=== PATIENT | female | born 1940 | race Caucasian/White ===

== ENCOUNTER → 2017-03-05 | Outpatient (CLI) | payer BC ==
[~2017-03-05] MED LIST: BIOF500T PO; CALC-335 PO; CHOL1CAP57 PO; CYAN10004 PO; DOCU-94 PO; MISCCAP80 PO; MULT-188 PO
--- NOTE | 2017-03-05 16:04 | MAMMOGRAPHY REPORT ---
BILATERAL DIGITAL SCREENING MAMMOGRAM WITH CAD: 03/05/2017 CLINICAL HISTORY: Routine screening. Patient has no complaints. TECHNIQUE: Current study was also evaluated with a Computer Aided Detection (CAD) system. COMPARISON: Comparison is made to exams dated: 03/08/2015 mammogram, 01/25/2015 mammogram, 12/17/2013 mammogram, 12/17/2013 mammogram, 12/03/2012 mammogram, and 11/06/2011 mammogram - [facility]. BREAST COMPOSITION: There are scattered areas of fibroglandular density in both breasts. FINDINGS: The parenchymal pattern is unchanged. No developing mass, architectural distortion or clus ter of suspicious suspicious microcalcifications is seen in either breast. IMPRESSION: ACR BI-RADS CATEGORY 2: BENIGN There is no mammographic evidence of malignancy. A 1 year screening mammogram is recommended. The p atient will receive written notification of the results. Approximately 10% of breast cancers are not detected with mammography. A negative mammographic repor t should not delay biopsy if a clinically suggestive mass is present. Margarita Sanchez M.D. ay/:03/05/2017 15:22:12 Sales Administrator: Danette Reynolds RT(R)(M), [facility] letter sent: Normal 1/2 BI-RADS Code: ACR BI-RADS Category 2: Benign
== END | disposition home or self-care (01) ==
LOC: C.MAMM 14:24
PROVIDERS: ATTEND Family Medicine
DX: Z12.31 Encounter for screening mammogram for malignant neoplasm of breast (principal)

== ENCOUNTER → 2018-03-10 | Outpatient (CLI) | payer BC ==
--- NOTE | 2018-03-10 15:25 | MAMMOGRAPHY REPORT ---
BILATERAL DIGITAL SCREENING MAMMOGRAM TOMOSYNTHESIS WITH CAD: 03/10/2018 CLINICAL HISTORY: Routine screening. Patient has no complaints. TECHNIQUE: Breast tomosynthesis in addition to standard 2D mammography was performed. Current study was also evaluated with a Computer Aided Detection (CAD) system. COMPARISON: Comparison is made to exams dated: 03/05/2017 mammogram, 03/08/2015 ultrasound, 01/25/2015 m ammogram, 12/03/2012 mammogram, 11/06/2011 mammogram, and 12/17/2013 mammogram - [facility]. BREAST COMPOSITION: There are scattered areas of fibroglandular density in both breasts. FINDINGS: The parenchymal pattern is unchanged. No developing mass, architectural distortion or clus ter of suspicious microcalcifications is seen in either breast. IMPRESSION: ACR BI-RADS CATEGORY 2: BENIGN There is no mammographic evidence of malignancy. A 1 year screening mammogram is recommended. The pa tient will receive written notification of the results. Approximately 10% of breast cancers are not detected with mammography. A negative mammographic report should not delay biopsy if a clinically suggestive mass is present. Margarita Sanchez M.D. ay/:03/10/2018 14:41:56 Report Manager: Guillermina CONNELL(Richi)(Susana), [facility] letter sent: Normal 1/2 BI-RADS Code: ACR BI-RADS Category 2: Benign
== END | disposition home or self-care (01) ==
LOC: C.MAMM 13:50
PROVIDERS: ATTEND Family Medicine
DX: Z12.31 Encounter for screening mammogram for malignant neoplasm of breast (principal)

== ENCOUNTER 2022-05-12 16:49 | Inpatient (IN) ==
--- NOTE | 2022-05-12 17:43 | Emergency Department Note ---
History of Present Illness General Chief complaint: Abnormal Labs/Diagnostic Testing Stated complaint: LOW SODIUM, ABNORMAL LABS, FEVER Time Seen by Provider: 05/12/22 17:14 Source: patient Mode of arrival: ambulatory Limitations: other History of Present Illness Provider complaint: Fatigue, low sodium, fever Onset (ago): day(s) 4 Maximum Pain Intensity: 1 This is an 82-year-old female presents emerged department complaining of 4 to 5 days of increased fatigue and low energy, decreased appetite, as well as intermittent fevers. She states she did go see her regular doctor who recommended outpatient blood work due to a history of low sodium. Patient does not know why she has had low sodium previously. Patient denies any history of kidney problems. Patient states she has also had accompanying postnasal drip, denies other nasal congestion, rhinorrhea, sore throat, or facial sinus pressure. Patient states they started on cephalexin which she has been taking over the last 2 to 3 days. Patient states they did call her to tell her that her sodium was low and it was rechecked. Family at bedside states fevers at home have been up over 101. No other change in medications recently. Patient states she did have a negative COVID test ordered by the doctor the other day as well as a negative home COVID test again today. No known sick contacts. Patient states she also began starting to have loose stools today, no black or bloody stools. She denies abdominal pain, change in urine, headaches, dizziness, cough, trouble breathing, or chest pain. Pt seen during a time of high acuity and national emergency pandemic while wearing PPE. Home Medications Medication Instructions Recorded Confirmed Type Raymore's wort 300 mg capsule 900 mg PO DAILY 08/11/19 05/12/22 History ascorbic acid (vitamin C) 1,000 mg 1 g PO QAM 08/11/19 05/12/22 History tablet (Vitamin C) cholecalciferol (vitamin D3) 50 2,000 unit PO QAM 08/11/19 05/12/22 History mcg (2,000 unit) capsule (Vitamin D3) cyanocobalamin (vitamin B-12) 5,000 mcg sublingual QAM 08/11/19 05/12/22 History 5,000 mcg sublingual tablet (Vitamin B-12) fexofenadine 180 mg tablet 180 mg PO QAM 08/11/19 05/12/22 History (Ernestine Allergy) lactobacillus combination no.4 3 3,000 mmu cells PO QAM 08/11/19 05/12/22 History billion cell capsule (Probiotic) carboxymethylcellulose sodium 1 % 2 drp ophthalmic (eye) BID Dry 05/09/22 05/12/22 History eye drops (Artificial Tears Eye(S) (carboxymethylcellulose)) fluticasone propionate 50 1 spray intranasal BID 05/09/22 05/12/22 History mcg/actuation nasal spray,suspension cephalexin 500 mg capsule 500 mg PO TID #21 caps 05/11/22 05/12/22 Rx Allergies Allergy/AdvReac Type Severity Reaction Status Date / Time Sulfa (Sulfonamide Allergy Intermediate RASH Verified 05/12/22 18:27 Antibiotics) metronidazole Allergy Unknown PER PT Verified 05/12/22 18:27 "WORST MED I EVER TOOK". nitrofurantoin Allergy Unknown CAN'T Verified 05/12/22 18:27 REMEMBER Penicillins Allergy Unknown HAPPENED Verified 05/12/22 18:27 MANY YEARS AGO. gluten AdvReac Intermediate Gastrointestinal Verified 05/12/22 18:27 Upset soy AdvReac Intermediate Gastrointestinal Verified 05/12/22 18:27 Upset Past Med/Surg History Medical History Diverticular disease Osteoarthritis Surgical History History of appendectomy History of bilateral cataract extraction History of bowel resection History of breast biopsy History of colonoscopy History of detached retina repair History of esophagogastroduodenoscopy (EGD) History of tonsillectomy Status post trigger finger release Family History Father Esophageal cancer Hearing loss Cancer Grandfather (Maternal) Myocardial infarction Other No family history of adverse response to anesthesia No family history of bleeding disorder Denies family history of Ovarian cancer Prostate cancer Breast cancer Colorectal cancer Social History Smoking Status: Never smoker Second Hand Exposure: Yes; Hx Alcohol Use: Yes Alcohol type: wine Alcohol Intake Frequency: Monthly or Less Hx Substance Use: No Preferred Language: Hungarian Communication Ability: Effective Visual Impairment: No Limitations Hearing Ability: Hard of Hearing Doorkeeper Required: No Beliefs That Will Affect Care: None marital status: / Current Living Situation: Family Current Living Situation Comment: Granddaughter lives with patient current occupational status: retired How many Children do You have: 4 Feels Safe at Home: Yes Childhood Exposure to Second-Hand Smoke: Yes Diet Comment: No soy or dairy caffeine: Yes during the past year weight has: remained stable Dental Care, Regularly: No Physical Activity Frequency: Daily Seatbelt Use: always Sunscreen Use: No Assistive Devices: None Review of Systems A total of 10 systems reviewed and were otherwise negative All systems reviewed & are unremarkable except as noted in HPI & below Physical Exam Vital Signs Vital Signs - 24 hr 05/12/22 16:53 05/12/22 17:10 Temperature 37 C Temperature Source Oral Pulse Rate 83 Pulse Rate [Apical] 79 Respiratory Rate 18 20 Respiratory Effort / Characteristics Non-Labored Spontaneous Respiratory Depth Normal Respiratory Pattern Regular Blood Pressure 125/70 Blood Pressure [Left Arm] 130/61 Blood Pressure Mean 88 Blood Pressure Mean [Left Arm] 84 Blood Pressure Position [Left Arm] Sitting Pulse Oximetry 95 96 Oxygen Delivery Method Room Air Room Air Sepsis Recent Fever Within 48 Hours Yes Sepsis New/Unexplained Change in Mental Status N/A Sepsis Action Taken by Nursing No Action Required GENERAL: alert, well appearing, well nourished, no distress, non-toxic EYE EXAM: normal conjunctiva, PERRL and EOM's grossly intact OROPHARYNX: no exudate, no erythema, lips, buccal mucosa, and tongue normal and mucous membranes are moist NECK: supple, no nuchal rigidity, no adenopathy, non-tender LUNGS: Clear to auscultation. Normal chest wall mechanics, no w/r/r HEART: no murmurs, S1 normal and S2 normal ABDOMEN: abdomen soft, non-tender, normo-active bowel sounds, no masses, no rebound or guarding. BACK: Back is symmetrical on inspection and there is no deformity, no midline tenderness, no CVA tenderness. SKIN: no rashes and no bruising UPPER EXTREMITIES: upper extremities are grossly normal. FROM, nml pulses b/l. LOWER EXTREMITIES: No pitting edema. FROM, nml pulses b/l. NEURO EXAM: Oriented but difficulty with recent events and chronology of events, cranial nerves II-XII grossly intact, normal speech, no gross weakness of arms, no gross weakness of legs. Gross sensation intact. Course Administered Medications Fexofenadine HCl (Fexofenadine Hcl 180 Mg Tab) 180 mg PO QAM MO Stop: 06/12/22 08:59 Last Admin: 05/13/22 07:46 Dose: 180 mg Documented By: BARRINGTON Fluticasone Propionate (Fluticasone Propionate Na Spr 16 Gm Btl) 1 sprays NA BID MO Stop: 06/12/22 08:59 Last Admin: 05/13/22 20:58 Dose: 1 sprays Documented By: Admin: 05/13/22 07:47 Dose: 1 sprays Documented By: BARRINGTON Loperamide HCl (Loperamide Hcl 2 Mg Cap) 2 mg PO Q6H PRN PRN Reason: Diarrhea Stop: 06/12/22 20:35 Last Admin: 05/13/22 20:58 Dose: 2 mg Documented By: Ondansetron HCl (Ondansetron Inj 2 Mg/Ml 2 Ml Vial) 4 mg IV Q6H PRN PRN Reason: Nausea Stop: 06/11/22 23:44 Last Admin: 05/13/22 00:26 Dose: 4 mg Documented By: SB Discontinued Medications Sodium Chloride (Nss 1000ml) 1,000 mls @ 100 mls/hr IV .Q10H MO Stop: 06/11/22 21:29 Last Infusion: 05/13/22 07:40 Dose: 0 mls/hr Documented By: Admin: 05/12/22 21:34 Dose: 100 mls/hr Documented By: DELMY Sodium Chloride (Sodium Chloride 1 Gm Tablet) 1 gm PO NOW STA Stop: 05/13/22 09:53 Last Admin: 05/13/22 10:53 Dose: 1 gm Documented By: BARRINGTON Medical Decision Making Differential Diagnosis Differential Diagnosis includes but is not limited to dehydration, stroke, anemia, hypoglycemia, hyponatremia, hypernatremia, urinary tract infection, pneumonia, bronchitis, sepsis, gastroenteritis, additional abdominal pathology, metabolic abnormalities and infections. Medical Records Attestation: I reviewed the patient's medical records. Home Medications Current Medication List: was personally reviewed by me Laboratory Data Attestation: I reviewed the patient's lab results. Result diagrams: 05/13/22 05:55 05/13/22 16:08 Lab Results 05/12/22 05/12/2222 Range/Units 17:12 17:12 17:12 WBC 5.84 (4.8-10.8) K/ul RBC 3.57 L (3.93-5.22) M/uL Hgb 11.2 L (12.0-16.0) g/dl Hct 32.2 L (34.1-44.9) % MCV 90.2 (80.0-100.0) fL MCH 31.4 (25.0-34.0) pg MCHC 34.8 (32.0-36.0) g/dL RDW Std Deviation 44.6 (36.4-46.3) fL RDW Coeff of Billy 13.4 (11.5-14.5) % Plt Count 197 (130-400) K/uL MPV 10.1 (9.4-12.3) fL Immature Gran % (Auto) 0.2 % Neut % (Auto) 81.6 % Lymph % (Auto) 8.0 % [place] % (Auto) 9.8 % Eos % (Auto) 0.2 % Baso % (Auto) 0.2 % Neut # (Auto) 4.77 (1.4-6.5) K/uL Lymph # (Auto) 0.47 L (1.2-3.4) K/uL [place] # (Auto) 0.57 (0.24-0.82) K/uL Eos # (Auto) 0.01 (0-0.50) K/uL Baso # (Auto) 0.01 (0-0.2) K/uL Immature Gran # (Auto) 0.01 (0.00-0.02) K/uL PT 10.3 (9.0-12.0) Seconds INR 1.0 (0.9-1.1) Sodium (136-145) mmol/L Potassium (3.5-5.1) mmol/L Chloride (98-107) mmol/L Carbon Dioxide (21-32) mmol/L Anion Gap (3-11) BUN (6-23) mg/dl Creatinine (0.6-1.2) mg/dl Est Cr Clr Drug Dosing Est GFR ( Amer) ml/min Est GFR (Non-Af Amer) ml/min BUN/Creatinine Ratio (10-20) Glucose (70-99(Fasting)) mg/dl Osmolality (280-300) mOsm/kg Lactate (0.4-2.0) mmol/L Calcium (8.5-10.1) mg/dl Magnesium (1.7-2.4) mg/dl Total Bilirubin (0.2-1.0) mg/dl AST (13-39) U/L ALT (7-52) U/L Alkaline Phosphatase (34-104) U/L Troponin I High Sens (0-14) pg/ml Total Protein (6.0-8.3) gm/dl Albumin (3.4-5.0) gm/dl Globulin (2.5-4.0) gm/dl Albumin/Globulin Ratio (0.9-2) Procalcitonin 0.08 (0-0.5) ng/ml Urine Color Urine Appearance (Clear) Urine pH (4.5-7.5) Ur Specific [place] (1.000-1.030) Urine Protein (Negative) Urine Glucose (UA) (Negative) Urine Ketones (Negative) Urine Blood (Negative) Urine Nitrite (Negative) Urine Bilirubin (Negative) Urine Urobilinogen (Negative) Ur Leukocyte Esterase (Negative) Urine WBC (Auto) (0-5) /hpf Urine RBC (Auto) (0-4) /hpf U Hyaline Cast (Auto) (0-5) /lpf U Epithel Cells (Auto) (0-5) /lpf Urine Bacteria (Auto) (Negative) SARS-CoV-2, RNA, NAAT (NEGATIVE) 05/12/22 05/12/22 05/12/22 Range/Units 17:12 17:12 17:52 WBC (4.8-10.8) K/ul RBC (3.93-5.22) M/uL Hgb (12.0-16.0) g/dl Hct (34.1-44.9) % MCV (80.0-100.0) fL MCH (25.0-34.0) pg MCHC (32.0-36.0) g/dL RDW Std Deviation (36.4-46.3) fL RDW Coeff of Billy (11.5-14.5) % Plt Count (130-400) K/uL MPV (9.4-12.3) fL Immature Gran % (Auto) % Neut % (Auto) % Lymph % (Auto) % [place] % (Auto) % Eos % (Auto) % Baso % (Auto) % Neut # (Auto) (1.4-6.5) K/uL Lymph # (Auto) (1.2-3.4) K/uL [place] # (Auto) (0.24-0.82) K/uL Eos # (Auto) (0-0.50) K/uL Baso # (Auto) (0-0.2) K/uL Immature Gran # (Auto) (0.00-0.02) K/uL PT (9.0-12.0) Seconds INR (0.9-1.1) Sodium 127 L (136-145) mmol/L Potassium 4.4 (3.5-5.1) mmol/L Chloride 95 L (98-107) mmol/L Carbon Dioxide 25 (21-32) mmol/L Anion Gap 7 (3-11) BUN 11 (6-23) mg/dl Creatinine 0.73 (0.6-1.2) mg/dl Est Cr Clr Drug Dosing Not Reportable Est GFR ( Amer) 88.3 ml/min Est GFR (Non-Af Amer) 76.2 ml/min BUN/Creatinine Ratio 15.1 (10-20) Glucose 118 H (70-99(Fasting)) mg/dl Osmolality 268 L (280-300) mOsm/kg Lactate 1.5 (0.4-2.0) mmol/L Calcium 8.5 (8.5-10.1) mg/dl Magnesium 1.8 (1.7-2.4) mg/dl Total Bilirubin 0.3 (0.2-1.0) mg/dl AST 20 (13-39) U/L ALT 14 (7-52) U/L Alkaline Phosphatase 46 (34-104) U/L Troponin I High Sens 10.8 (0-14) pg/ml Total Protein 6.3 (6.0-8.3) gm/dl Albumin 3.6 (3.4-5.0) gm/dl Globulin 2.7 (2.5-4.0) gm/dl Albumin/Globulin Ratio 1.3 (0.9-2) Procalcitonin (0-0.5) ng/ml Urine Color Urine Appearance (Clear) Urine pH (4.5-7.5) Ur Specific [place] (1.000-1.030) Urine Protein (Negative) Urine Glucose (UA) (Negative) Urine Ketones (Negative) Urine Blood (Negative) Urine Nitrite (Negative) Urine Bilirubin (Negative) Urine Urobilinogen (Negative) Ur Leukocyte Esterase (Negative) Urine WBC (Auto) (0-5) /hpf Urine RBC (Auto) (0-4) /hpf U Hyaline Cast (Auto) (0-5) /lpf U Epithel Cells (Auto) (0-5) /lpf Urine Bacteria (Auto) (Negative) SARS-CoV-2, RNA, NAAT (NEGATIVE) 05/12/22 05/12/22 Range/Units 18:50 21:33 WBC (4.8-10.8) K/ul RBC (3.93-5.22) M/uL Hgb (12.0-16.0) g/dl Hct (34.1-44.9) % MCV (80.0-100.0) fL MCH (25.0-34.0) pg MCHC (32.0-36.0) g/dL RDW Std Deviation (36.4-46.3) fL RDW Coeff of Billy (11.5-14.5) % Plt Count (130-400) K/uL MPV (9.4-12.3) fL Immature Gran % (Auto) % Neut % (Auto) % Lymph % (Auto) % [place] % (Auto) % Eos % (Auto) % Baso % (Auto) % Neut # (Auto) (1.4-6.5) K/uL Lymph # (Auto) (1.2-3.4) K/uL [place] # (Auto) (0.24-0.82) K/uL Eos # (Auto) (0-0.50) K/uL Baso # (Auto) (0-0.2) K/uL Immature Gran # (Auto) (0.00-0.02) K/uL PT (9.0-12.0) Seconds INR (0.9-1.1) Sodium (136-145) mmol/L Potassium (3.5-5.1) mmol/L Chloride (98-107) mmol/L Carbon Dioxide (21-32) mmol/L Anion Gap (3-11) BUN (6-23) mg/dl Creatinine (0.6-1.2) mg/dl Est Cr Clr Drug Dosing Est GFR ( Amer) ml/min Est GFR (Non-Af Amer) ml/min BUN/Creatinine Ratio (10-20) Glucose (70-99(Fasting)) mg/dl Osmolality (280-300) mOsm/kg Lactate (0.4-2.0) mmol/L Calcium (8.5-10.1) mg/dl Magnesium (1.7-2.4) mg/dl Total Bilirubin (0.2-1.0) mg/dl AST (13-39) U/L ALT (7-52) U/L Alkaline Phosphatase (34-104) U/L Troponin I High Sens (0-14) pg/ml Total Protein (6.0-8.3) gm/dl Albumin (3.4-5.0) gm/dl Globulin (2.5-4.0) gm/dl Albumin/Globulin Ratio (0.9-2) Procalcitonin (0-0.5) ng/ml Urine Color Yellow Urine Appearance Clear (Clear) Urine pH 7.5 (4.5-7.5) Ur Specific [place] 1.017 (1.000-1.030) Urine Protein Negative (Negative) Urine Glucose (UA) Negative (Negative) Urine Ketones Negative (Negative) Urine Blood Negative (Negative) Urine Nitrite Negative (Negative) Urine Bilirubin Negative (Negative) Urine Urobilinogen Negative (Negative) Ur Leukocyte Esterase Trace H (Negative) Urine WBC (Auto) 1-5 (0-5) /hpf Urine RBC (Auto) 10-30 H (0-4) /hpf U Hyaline Cast (Auto) 0 (0-5) /lpf U Epithel Cells (Auto) >30 H (0-5) /lpf Urine Bacteria (Auto) Negative (Negative) SARS-CoV-2, RNA, NAAT NEGATIVE (NEGATIVE) Imaging Data Radiologist's Impression: HEAD CT NONCONTRAST CT DOSE: 1074.96 mGy.cm HISTORY: confusion TECHNIQUE: Multiaxial CT images of the head were performed without the use of intravenous contrast. Automated exposure control was utilized for this study. A dose lowering technique was utilized adhering to the principles of ALARA. Comparison: None. Findings: The paranasal sinuses and mastoid air cells are clear. The calvarium and skull base are intact. The ventricles and sulci are within normal limits. There is no mass, hematoma, midline shift, or acute infarct. Impression: No acute intracranial abnormality. ACT 112: Negative or not required by law. Electronically signed by: Grady Blackwell M.D. 05/12/2022 6:08 PM XR chest 1V portable HISTORY: SEPSIS COMPARISON: Chest 05/09/2022. FINDINGS: No pneumothorax. No pleural effusions. A few small left basilar linear densities consistent with subsegmental atelectasis or scarring. Otherwise, the lungs are clear. The heart is borderline enlarged. No evidence for pulmonary edema. IMPRESSION: No acute process. ACT 112: Negative or not required by law. Electronically signed by: Grady Blackwell M.D. 05/12/2022 6:11 PM MDM Narrative An order was placed for continuous cardiac monitoring. The monitor shows a rate of _82_ with _normal sinus__ rhythm. This is an 82-year-old female presents emergency department due to concern for 4 to 5 days of persistent weakness, fatigue, decreased appetite. Patient found to have hyponatremia initially on outpatient labs. Patient also started on antibiotics for presumed sinus infection. Labs drawn and sent, chest x-ray and CT performed and reassuring. Patient was afebrile and hemodynamically stable. Patient was found to have worsening hyponatremia again at 127. No evidence of CARITO. Other electrolytes reassuring. Patient was started on careful and cautious IV fluid rehydration. UA unremarkable. Due to symptomatic hyponatremia and unclear etiology of hyponatremia and advanced age, case discussed with hospitalist for additional evaluation and management. I did discuss all results with patient and family at bedside who verbalized understanding and were in agreement with plan. Impression & Plan Generalized weakness, Hyponatremia, Fatigue Discharge Plan Visit Data Chief Complaint: Abnormal Labs/Diagnostic Testing Stated Complaint: LOW SODIUM, ABNORMAL LABS, FEVER ED Provider: Yue Ac Discharge Problem: Generalized weakness, Hyponatremia, Fatigue Patient Disposition: Admitted As Inpatient Discharge Instructions Interventions: ED Discharge Assessment Last Done: 05/12/22 23:16
[2022-05-12 17:53] LABS: Basophils # (auto) 0.01 K/uL (0-0.2); Basophils % (auto) 0.2 %; Eosinophils # (auto) 0.01 K/uL (0-0.50); Eosinophils % (auto) 0.2 %; Hematocrit (blood only) 32.2 % (34.1-44.9); Hemoglobin 11.2 g/dl (12.0-16.0); Immature Granulocytes # (auto) 0.01 K/uL (0.00-0.02); Immature Granulocytes % (auto) 0.2 %; Lymphocytes # (auto) 0.47 K/uL (1.2-3.4); Mean Corpuscular Hemoglobin 31.4 pg (25.0-34.0); Mean Corpuscular Hgb Conc 34.8 g/dL (32.0-36.0); Mean Corpuscular Volume 90.2 fL (80.0-100.0); Mean Platelet Volume 10.1 fL (9.4-12.3); Monocytes # (auto) 0.57 K/uL (0.24-0.82); Monocytes % (auto) 9.8 %; Neutrophils # (auto) 4.77 K/uL (1.4-6.5); Neutrophils % (auto) 81.6 %; Platelet Count 197 K/uL (130-400); RDW Coefficient of Variation 13.4 % (11.5-14.5); RDW Standard Deviation 44.6 fL (36.4-46.3); Red Blood Count 3.57 M/uL (3.93-5.22); White Blood Count 5.84 K/ul (4.8-10.8)
[2022-05-12 18:04] LABS: Prothrombin Time 10.3 Seconds (9.0-12.0)
[2022-05-12 18:07] LABS: Alanine Aminotransferase 14 U/L (7-52); Albumin Globulin Ratio 1.3 (0.9-2); Albumin Level 3.6 gm/dl (3.4-5.0); Alkaline Phosphatase 46 U/L (34-104); Anion Gap 7 (3-11); Aspartate Aminotransferase 20 U/L (13-39); BUN Creatinine Ratio 15.1 (10-20); Bilirubin,Total 0.3 mg/dl (0.2-1.0); Blood Urea Nitrogen 11 mg/dl (6-23); Calcium 8.5 mg/dl (8.5-10.1); Carbon Dioxide 25 mmol/L (21-32); Chloride 95 mmol/L (98-107); Est GFR (African American) 88.3 ml/min; Est GFR (Non-African American) 76.2 ml/min; Globulin 2.7 gm/dl (2.5-4.0); Glucose 118 mg/dl (70-99(Fasting)); Magnesium 1.8 mg/dl (1.7-2.4); Potassium 4.4 mmol/L (3.5-5.1); Sodium 127 mmol/L (136-145); Total Protein 6.3 gm/dl (6.0-8.3)
[2022-05-12 18:11] LABS: Troponin I High Sensitivity 10.8 pg/ml (0-14)
--- NOTE | 2022-05-12 18:11 | CT Scan Report ---
HEAD CT NONCONTRAST CT DOSE: 1074.96 mGy.cm HISTORY: confusion TECHNIQUE: Multiaxial CT images of the head were performed without the use of intravenous contrast. A utomated exposure control was utilized for this study. A dose lowering technique was utilized adheri ng to the principles of ALARA. Comparison: None. Findings: The paranasal sinuses and mastoid air cells are clear. The calvarium and skull base are int act. The ventricles and sulci are within normal limits. There is no mass, hematoma, midline shift, or acute infarct. Impression: No acute intracranial abnormality. ACT 112: Negative or not required by law. Electronically signed by: Grady Blackwell M.D. 05/12/2022 6:08 PM
--- NOTE | 2022-05-12 18:12 | XRay Report ---
XR chest 1V portable HISTORY: SEPSIS COMPARISON: Chest 05/09/2022. FINDINGS: No pneumothorax. No pleural effusions. A few small left basilar linear densities consistent with subsegmental atelectasis or scarring. Otherwise, the lungs are clear. The heart is borderline e nlarged. No evidence for pulmonary edema. IMPRESSION: No acute process. ACT 112: Negative or not required by law. Electronically signed by: Grady Blackwell M.D. 05/12/2022 6:11 PM
[2022-05-12 20:13] LABS: Appearance Urine Clear (Clear); Bacteria Urine Automated Negative (Negative); Bilirubin Urine Negative (Negative); Blood Urine Negative (Negative); Cast Urine Automated 0 /lpf (0-5); Color Urine Yellow; Epithelial Cell Urine Auto >30 /lpf (0-5); Glucose Urine UA Negative (Negative); Ketones Urine Negative (Negative); Leukocyte Esterase Urine Trace (Negative); Nitrite Urine Negative (Negative); Protein Urine Negative (Negative); Specific Gravity Urine 1.017 (1.000-1.030); Urobilinogen Urine Negative (Negative); pH Urine 7.5 (4.5-7.5)
[2022-05-12] MEDS ORDERED: SODIUM CHLORIDE 0.9% 1000ML 1,000 ML IV SCH (21:30)
--- NOTE | 2022-05-12 22:53 | History & Physical Report ---
Date of Service May 12, 2022 Assessment & Plan (1) Hyponatremia: Plan: Patient with history of hyponatremia in the past. Etiology unclear. Per record review her Na has been 126-133 over the last 18 months. No acute neurological complications of hyponatremia appreciated. Patient appears euvolemic on exam. Denies edema, weight gain, orthopnea. No known renal disease. TSH with within normal limits at 1.6. -Admit to medical -Check urine and serum osmolality -Check random urine Na -Check cortisol with AM labs -Check Legionella urinary antigen - patient with URI symptoms, diarrhea and hyponatremia -Fluid restriction 1200mL -Repeat chemistry in AM (2) URI (upper respiratory infection): Plan: Most likely viral URI. Patient had leukopenia with lymphopenia. Covid-19 testing has been NEGATIVE x 3. CXR without evidence of PNA. Procalcitonin is normal -Symptomatic management - Tylenol PRN, nasal saline -Urine Legionella as above -Will discontinue Keflex for now. Reassess need for antibiotics as patient's course unfolds (3) Seasonal allergies: Plan: May be contributing to symptoms as well -Continue Fluticasone and Ernestine Plan F/E/N - Heplock. Monitor Na as above. Regular diet with fluid restriction Ppx - Low risk for DVT Code - Full per discussion with patient Dispo - Admit to medical History of Present Illness Chief Complaint: illness, hyponatremia Primary Care Provider: NO PCP Yue Hooks is an 82yo female presenting with complaint of 7 days of cough, congestion, sore throat, post nasal drip, and fatigue. She also experiences lightheadedness. Patient's daughter is at bedside and reports patient has been more confused and forgetful lately. She has had intermittent fevers with a fever prior to arrival to [facility]. She has had several episodes of diarrhea which started today as well. She was seen by her PCP on 05/09/22 with these complaints and was started on Keflex 500mg po TID for sinus infection. She also had blood work performed which revealed hyponatremia with Tp=288. She has had hyponatremia in the past but is uncertain why. Patient had a Covid-19 test on 05/08/22 which was NEGATIVE. She had a negative home Covid test today and her NAAT test performed in the ER today is NEGATIVE as well. She has received one Covid-19 vaccine and had Covid in September. No sick contacts and no recent travel. Patient denies chest pain, palpitations or abdominal pain. She has some nausea and poor appetite. Otherwise no complaints. In the ER she is afebrile, HD stable, no respiratory distress. Adequate oxygenation on room air. Allergies Allergy/AdvReac Type Severity Reaction Status Date / Time Sulfa (Sulfonamide Allergy Intermediate RASH Verified 05/12/22 18:27 Antibiotics) metronidazole Allergy Unknown PER PT Verified 05/12/22 18:27 "WORST MED I EVER TOOK". nitrofurantoin Allergy Unknown CAN'T Verified 05/12/22 18:27 REMEMBER Penicillins Allergy Unknown HAPPENED Verified 05/12/22 18:27 MANY YEARS AGO. gluten AdvReac Intermediate Gastrointestinal Verified 05/12/22 18:27 Upset soy AdvReac Intermediate Gastrointestinal Verified 05/12/22 18:27 Upset Home Medications Medication Instructions Recorded Confirmed Type Leonidas's wort 300 mg capsule 900 mg PO DAILY 08/11/19 05/12/22 History ascorbic acid (vitamin C) 1,000 mg 1 g PO QAM 08/11/19 05/12/22 History tablet (Vitamin C) cholecalciferol (vitamin D3) 50 2,000 unit PO QAM 08/11/19 05/12/22 History mcg (2,000 unit) capsule (Vitamin D3) cyanocobalamin (vitamin B-12) 5,000 mcg sublingual QAM 08/11/19 05/12/22 History 5,000 mcg sublingual tablet (Vitamin B-12) fexofenadine 180 mg tablet 180 mg PO QAM 08/11/19 05/12/22 History (Ernestine Allergy) lactobacillus combination no.4 3 3,000 mmu cells PO QAM 08/11/19 05/12/22 History billion cell capsule (Probiotic) carboxymethylcellulose sodium 1 % 2 drp ophthalmic (eye) BID Dry 05/09/22 05/12/22 History eye drops (Artificial Tears Eye(S) (carboxymethylcellulose)) fluticasone propionate 50 1 spray intranasal BID 05/09/22 05/12/22 History mcg/actuation nasal spray,suspension cephalexin 500 mg capsule 500 mg PO TID #21 caps 05/11/22 05/12/22 Rx Past Med/Surg History Medical History Diverticular disease Osteoarthritis Surgical History History of appendectomy History of bilateral cataract extraction History of bowel resection History of breast biopsy History of colonoscopy History of detached retina repair History of esophagogastroduodenoscopy (EGD) History of tonsillectomy Status post trigger finger release Family History Father Esophageal cancer Hearing loss Cancer Grandfather (Maternal) Myocardial infarction Other No family history of adverse response to anesthesia No family history of bleeding disorder Denies family history of Ovarian cancer Prostate cancer Breast cancer Colorectal cancer Social History Smoking Status: Never smoker Second Hand Exposure: Yes (as a child); Hx Alcohol Use: Yes Alcohol type: wine Alcohol Intake Frequency: Monthly or Less Hx Substance Use: No Preferred Language: Estonian Communication Ability: Effective Visual Impairment: No Limitations Hearing Ability: Hard of Hearing 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 Beliefs That Will Affect Care: None marital status: / Current Living Situation: Spouse and Other Current Living Situation Comment: Granddaughter lives with patient current occupational status: retired How many Children do You have: 4 Feels Safe at Home: Yes Childhood Exposure to Second-Hand Smoke: Yes Diet Comment: No soy or dairy caffeine: Yes during the past year weight has: remained stable Dental Care, Regularly: No Physical Activity Frequency: Daily Seatbelt Use: always Sunscreen Use: No Assistive Devices: Glasses Review of Systems Review of Systems: All systems reviewed & are unremarkable except as noted in HPI & below Physical Exam Physical Exam: General: patient resting comfortably, appears fatigued, NAD, non-toxic in appearance, AA&O x 4 Skin: warm, dry, intact, no rashes or lesions HEENT: NC/AT, PERRL, EOMI, anicteric sclera, conjunctiva without injection, external ear normal to inspection and nontender, nares patent, moist mucus membranes, dentition intact, no oropharyngeal lesions, neck supple, trachea midline, no LAD, no thyromegaly, no JVD Heart: +S1/S2, regular, no m/r/g Lungs: equal air entry bilaterally, no rales/rhonchi/wheezes Abd: +BS, soft, NT/ND, no masses/organomegaly/ascites Ext: warm, 2+ pulses in UE/LE bilaterally, no clubbing/cyanosis or edema Neuro: nonfocal, patient AA&O x 4, speech intact, no facial droop, moving all extremities on command with equal strength 5/5 Results & Data Results & Data ([facility]) Vital Signs (Past 12 Hours) Vital Signs Temp Pulse Pulse Resp BP BP Pulse Ox 05/12/22 22:42 77 18 131/56 L 97 05/12/22 21:00 74 18 130/60 96 05/12/22 21:00 20 97 05/12/22 20:30 18 97 05/12/22 20:00 18 96 05/12/22 19:30 20 95 05/12/22 19:00 68 18 110/56 L 95 05/12/22 19:00 20 96 05/12/22 18:30 79 18 120/75 97 05/12/22 18:35 18 97 05/12/22 18:05 78 16 123/65 96 05/12/22 17:35 96 05/12/22 17:54 97 05/12/22 17:54 77 16 130/61 96 05/12/22 17:10 79 20 130/61 96 05/12/22 16:53 37 C 83 18 125/70 95 O2 Del Method 05/12/22 22:42 Room Air 05/12/22 21:00 05/12/22 21:00 Room Air 05/12/22 20:30 Room Air 05/12/22 20:00 Room Air 05/12/22 19:30 Room Air 05/12/22 19:00 Room Air 05/12/22 19:00 Room Air 05/12/22 18:30 Room Air 05/12/22 18:35 Room Air 05/12/22 18:05 Room Air 05/12/22 17:35 Room Air 05/12/22 17:54 Room Air 05/12/22 17:54 Room Air 05/12/22 17:10 Room Air 05/12/22 16:53 Room Air Laboratory Results Laboratory Results WBC 5.84 K/ul (4.8-10.8) 05/12/22 17:12 RBC 3.57 M/uL (3.93-5.22) L 05/12/22 17:12 Hgb 11.2 g/dl (12.0-16.0) L 05/12/22 17:12 Hct 32.2 % (34.1-44.9) L 05/12/22 17:12 MCV 90.2 fL (80.0-100.0) 05/12/22 17:12 MCH 31.4 pg (25.0-34.0) 05/12/22 17:12 MCHC 34.8 g/dL (32.0-36.0) 05/12/22 17:12 RDW Std Deviation 44.6 fL (36.4-46.3) 05/12/22 17:12 RDW Coeff of Billy 13.4 % (11.5-14.5) 05/12/22 17:12 Plt Count 197 K/uL (130-400) 05/12/22 17:12 MPV 10.1 fL (9.4-12.3) 05/12/22 17:12 Immature Gran % (Auto) 0.2 % 05/12/22 17:12 Neut % (Auto) 81.6 % 05/12/22 17:12 Lymph % (Auto) 8.0 % 05/12/22 17:12 Armstrong % (Auto) 9.8 % 05/12/22 17:12 Eos % (Auto) 0.2 % 05/12/22 17:12 Baso % (Auto) 0.2 % 05/12/22 17:12 Neut # (Auto) 4.77 K/uL (1.4-6.5) 05/12/22 17:12 Lymph # (Auto) 0.47 K/uL (1.2-3.4) L 05/12/22 17:12 Armstrong # (Auto) 0.57 K/uL (0.24-0.82) 05/12/22 17:12 Eos # (Auto) 0.01 K/uL (0-0.50) 05/12/22 17:12 Baso # (Auto) 0.01 K/uL (0-0.2) 05/12/22 17:12 Immature Gran # (Auto) 0.01 K/uL (0.00-0.02) 05/12/22 17:12 PT 10.3 Seconds (9.0-12.0) 05/12/22 17:12 INR 1.0 (0.9-1.1) 05/12/22 17:12 Sodium 127 mmol/L (136-145) L 05/12/22 17:12 Potassium 4.4 mmol/L (3.5-5.1) 05/12/22 17:12 Chloride 95 mmol/L (98-107) L 05/12/22 17:12 Carbon Dioxide 25 mmol/L (21-32) 05/12/22 17:12 Anion Gap 7 (3-11) 05/12/22 17:12 BUN 11 mg/dl (6-23) 05/12/22 17:12 Creatinine 0.73 mg/dl (0.6-1.2) 05/12/22 17:12 Est Cr Clr Drug Dosing Not Reportable 05/12/22 17:12 Est GFR ( Amer) 88.3 ml/min 05/12/22 17:12 Est GFR (Non-Af Amer) 76.2 ml/min 05/12/22 17:12 BUN/Creatinine Ratio 15.1 (10-20) 05/12/22 17:12 Glucose 118 mg/dl (70-99(Fasting)) H 05/12/22 17:12 Lactate 1.5 mmol/L (0.4-2.0) 05/12/22 17:52 Calcium 8.5 mg/dl (8.5-10.1) 05/12/22 17:12 Magnesium 1.8 mg/dl (1.7-2.4) 05/12/22 17:12 Total Bilirubin 0.3 mg/dl (0.2-1.0) 05/12/22 17:12 AST 20 U/L (13-39) 05/12/22 17:12 ALT 14 U/L (7-52) 05/12/22 17:12 Alkaline Phosphatase 46 U/L (34-104) 05/12/22 17:12 Troponin I High Sens 10.8 pg/ml (0-14) 05/12/22 17:12 Total Protein 6.3 gm/dl (6.0-8.3) 05/12/22 17:12 Albumin 3.6 gm/dl (3.4-5.0) 05/12/22 17:12 Globulin 2.7 gm/dl (2.5-4.0) 05/12/22 17:12 Albumin/Globulin Ratio 1.3 (0.9-2) 05/12/22 17:12 Procalcitonin 0.08 ng/ml (0-0.5) 05/12/22 17:12 Urine Color Yellow 05/12/22 18:50 Urine Appearance Clear (Clear) 05/12/22 18:50 Urine pH 7.5 (4.5-7.5) 05/12/22 18:50 Ur Specific [place] 1.017 (1.000-1.030) 05/12/22 18:50 Urine Protein Negative (Negative) 05/12/22 18:50 Urine Glucose (UA) Negative (Negative) 05/12/22 18:50 Urine Ketones Negative (Negative) 05/12/22 18:50 Urine Blood Negative (Negative) 05/12/22 18:50 Urine Nitrite Negative (Negative) 05/12/22 18:50 Urine Bilirubin Negative (Negative) 05/12/22 18:50 Urine Urobilinogen Negative (Negative) 05/12/22 18:50 Ur Leukocyte Esterase Trace (Negative) H 05/12/22 18:50 Urine WBC (Auto) 1-5 /hpf (0-5) 05/12/22 18:50 Urine RBC (Auto) 10-30 /hpf (0-4) H 05/12/22 18:50 U Hyaline Cast (Auto) 0 /lpf (0-5) 05/12/22 18:50 U Epithel Cells (Auto) >30 /lpf (0-5) H 05/12/22 18:50 Urine Bacteria (Auto) Negative (Negative) 05/12/22 18:50 SARS-CoV-2, RNA, NAAT NEGATIVE (NEGATIVE) 05/12/22 21:[address] 05/12/22 17:[address] DOSE: 1074.96 mGy.cm HISTORY: confusion TECHNIQUE: Multiaxial CT images of the head were performed without the use of intravenous contrast. Automated exposure control was utilized for this study. A dose lowering technique was utilized adhering to the principles of ALARA. Comparison: None. Findings: The paranasal sinuses and mastoid air cells are clear. The calvarium and skull base are intact. The ventricles and sulci are within normal limits. There is no mass, hematoma, midline shift, or acute infarct. Impression: No acute intracranial abnormality. ACT 112: Negative or not required by law. Electronically signed by: Grady Blackwell M.D. 05/12/2022 6:08 PM Chest X-Ray 05/12/22 17:35 XR chest 1V portable HISTORY: SEPSIS COMPARISON: Chest 05/09/2022. FINDINGS: No pneumothorax. No pleural effusions. A few small left basilar linear densities consistent with subsegmental atelectasis or scarring. Otherwise, the lungs are clear. The heart is borderline enlarged. No evidence for pulmonary edema. IMPRESSION: No acute process. ACT 112: Negative or not required by law. Electronically signed by: Grady Blackwell M.D. 05/12/2022 6:11 PM PG Care Time/CCT Total # of Minutes Spent Total Time Spent with Patient: Total time spent is greater than 50% in coordination of care (as documented) at patient's floor/unit and/or counseling patient: Coding Level of Care Code 28923 Initial Inpt Care Lvl 2 Diagnoses Hyponatremia E87.1 URI (upper respiratory infection) J06.9 Seasonal allergies J30.2
[2022-05-12] MEDS ORDERED: ACETAMINOPHEN 325 MG TAB PO PRN (23:45)
[2022-05-12] MEDS ORDERED: SODIUM CHLORIDE 0.65% NA SOLN 45 ML (OCEAN) PRN (23:45)
[2022-05-12] MEDS ORDERED: ONDANSETRON INJ 2 MG/ML 2 ML VIAL IV PRN (23:45)
[2022-05-13 07:09] LABS: Hematocrit (blood only) 31.6 % (34.1-44.9); Hemoglobin 10.9 g/dl (12.0-16.0); Immature Granulocytes # (auto) 0.02 K/uL (0.00-0.02); Immature Granulocytes % (auto) 0.4 %; Lymphocytes # (auto) 0.62 K/uL (1.2-3.4); Lymphocytes % (auto) 11.9 %; Mean Corpuscular Hemoglobin 30.4 pg (25.0-34.0); Mean Corpuscular Hgb Conc 34.5 g/dL (32.0-36.0); Mean Corpuscular Volume 88.3 fL (80.0-100.0); Mean Platelet Volume 10.3 fL (9.4-12.3); Monocytes # (auto) 0.48 K/uL (0.24-0.82); Monocytes % (auto) 9.2 %; Neutrophils # (auto) 4.07 K/uL (1.4-6.5); Neutrophils % (auto) 78.5 %; Platelet Count 197 K/uL (130-400); RDW Coefficient of Variation 13.2 % (11.5-14.5); RDW Standard Deviation 43.2 fL (36.4-46.3); Red Blood Count 3.58 M/uL (3.93-5.22); White Blood Count 5.19 K/ul (4.8-10.8)
[2022-05-13] MEDS: FEXOFENADINE HCL 180 MG TAB PO SCH (07:46)
[2022-05-13] MEDS: FLUTICASONE PROPIONATE NA SPR 16 GM BTL SCH ×2 (07:47→20:58)
[2022-05-13 07:49] LABS: BUN Creatinine Ratio 12.9 (10-20); Calcium 8.1 mg/dl (8.5-10.1); Creatinine Clr Calc Pharmacy 64.1 ml/min; Est GFR (African American) 96.6 ml/min; Est GFR (Non-African American) 83.4 ml/min; Potassium 4.1 mmol/L (3.5-5.1)
[2022-05-13] MEDS ORDERED: SODIUM CHLORIDE 1 GM TABLET PO STA (09:52)
--- NOTE | 2022-05-13 12:41 | Electrocardiogram Report ---
Test Reason : Blood Pressure : / mmHG Vent. Rate : 080 BPM Atrial Rate : 080 BPM P-R Int : 162 ms QRS Dur : 082 ms QT Int : 340 ms P-R-T Axes : 048 -28 034 degrees QTc Int : 392 ms Normal sinus rhythm Normal ECG When compared with ECG of 06-NOV-2012 06:56, Vent. rate has increased BY 26 BPM Confirmed by Bobby Dockery ([id number]) on 05/13/2022 12:41:42 PM Referred By: REFERRED SELF Confirmed By:Bobby Dockery
--- NOTE | 2022-05-13 12:45 | Hospitalist Progress Note ---
Date of Service May 13, 2022 Assessment & Plan (1) Hyponatremia: Plan: 82 yo F with PMH chronic hyponatremia, osteoarthritis, seasonal allergies presenting with recent URI symptoms, admitted for acute hyponatremia. 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 Currently without neurological complications -Continue conservative SIADH management -Fluid restriction 1200 mLs -Encourage oral solute intake -Consider hypertonic saline infusion should Na decrease/stagnate or neurologic symptoms develop -Trend daily BMP, serial Na (2) URI (upper respiratory infection): Plan: Likely viral URI -COVID negative, procalcitonin normal, -Continue symptomatic management - Tylenol PRN, nasal saline -Urine Legionella pending -Keflex discontinued (3) Seasonal allergies: Plan: -May be contributing to symptoms as well -Continue symptom relief w/ scheduled Flonase, Ernestine Plan F/E/N - Heplock. Regular diet with fluid restriction Ppx - Low risk for DVT Code - Full Dispo - Medical/surgical Admission and Anticipated Discharge Date Admission Date: May 12, 2022 Supervising Physician Co-Signing Physician Notes Attending attestation Pt seen and examined in concert with Dr. Nguyen. In agreement with the documented findings as noted in the resident documentation with any exceptions or additions as noted here. Patient reports resolution of symptoms from presentation and is AAOx3 with insightful questions about her medical condition on admission. Tolerating PO well, though reports a restricted diet 2/2 soy and dairy intolerance which may contribute to acute on chronic hyponatremia On examination, S1/S2 nl RRR no MCG. CTAB. Abd NT/ND BS+ve Hyponatremia - improving - counseling re: fluid consumption, solute intake and consideration for aerial gunner f/u for improved intake in the setting of restrictions. cortisol, TSH WNL. Trend BMP until ~132-134. COnsider further supplementation Else see resident documentation as noted. Subjective No acute events overnight. Pt feels well, denying any acute complaints. URI symptoms have improved. States she hasn't consumed much water since being here. Pt inquired about cause of her hyponatremia and said she would very much like to go home today. Review of Systems Review of Systems: Per Subjective Physical Exam Physical Exam: General: patient resting comfortably, no acute distress HEENT: anicteric sclerae, conjunctiva without injection, moist mucous membranes, neck supple, trachea midline, no thyromegaly CV: RRR, normal S1/S2, no murmurs noted Resp: CTAB, unlabored respirations, no crackles or wheezes Abd: soft, nontender, nondistended, no guarding or rebound Ext: warm, 2+ pulses in b/l UE/LE, no peripheral edema Neuro: AOx3, CN 2-12 grossly intact, 5/5 strength of b/l UE and LE, no sensory deficits Skin: warm, dry, intact, no rashes or lesions Results & Data Results & Data ([facility]) Vital Signs (Past 12 Hours) Vital Signs Temp Pulse Resp BP Pulse Ox O2 Del Method 05/13/22 07:18 37.5 C 78 16 102/64 92 Room Air Resident Activity Tracking Resident Involvement: Resident Care Provided Care Provided: Adult Hospital Medicine
--- NOTE | 2022-05-13 16:00 | Discharge Summary ---
Date of Service May 13, 2022 Admission HPI Per Admitting Provider Yue Hooks is an 82yo female presenting with complaint of 7 days of cough, congestion, sore throat, post nasal drip, and fatigue. She also experiences lightheadedness. Patient's daughter is at bedside and reports patient has been more confused and forgetful lately. She has had intermittent fevers with a fever prior to arrival to [facility]. She has had several episodes of diarrhea which started today as well. She was seen by her PCP on 05/09/22 with these complaints and was started on Keflex 500mg po TID for sinus infection. She also had blood work performed which revealed hyponatremia with Gf=027. She has had hyponatremia in the past but is uncertain why. Patient had a Covid-19 test on 05/08/22 which was NEGATIVE. She had a negative home Covid test today and her NAAT test performed in the ER today is NEGATIVE as well. She has received one Covid-19 vaccine and had Covid in September. No sick contacts and no recent travel. Patient denies chest pain, palpitations or abdominal pain. She has some nausea and poor appetite. Otherwise no complaints. In the ER she is afebrile, HD stable, no respiratory distress. Adequate oxygenation on room air. Admission Exam Per Admitting Provider General: patient resting comfortably, appears fatigued, NAD, non-toxic in appearance, AA&O x 4 Skin: warm, dry, intact, no rashes or lesions HEENT: NC/AT, PERRL, EOMI, anicteric sclera, conjunctiva without injection, external ear normal to inspection and nontender, nares patent, moist mucus membranes, dentition intact, no oropharyngeal lesions, neck supple, trachea midline, no LAD, no thyromegaly, no JVD Heart: +S1/S2, regular, no m/r/g Lungs: equal air entry bilaterally, no rales/rhonchi/wheezes Abd: +BS, soft, NT/ND, no masses/organomegaly/ascites Ext: warm, 2+ pulses in UE/LE bilaterally, no clubbing/cyanosis or edema Neuro: nonfocal, patient AA&O x 4, speech intact, no facial droop, moving all extremities on command with equal strength 5/5 Principal Diagnosis SIADH, chronic hyponatremia Discharge Exam General: patient resting comfortably, no acute distress HEENT: anicteric sclerae, conjunctiva without injection, moist mucous membranes, neck supple, trachea midline, no thyromegaly CV: RRR, normal S1/S2, no murmurs noted Resp: CTAB, unlabored respirations, no crackles or wheezes Abd: soft, nontender, nondistended, no guarding or rebound Ext: warm, 2+ pulses in b/l UE/LE, no peripheral edema Neuro: AOx3, CN 2-12 grossly intact, 5/5 strength of b/l UE and LE, no sensory deficits Skin: warm, dry, intact, no rashes or lesions Discharge Data Allergies Allergy/AdvReac Type Severity Reaction Status Date / Time Sulfa (Sulfonamide Allergy Intermediate RASH Verified 05/12/22 18:27 Antibiotics) metronidazole Allergy Unknown PER PT Verified 05/12/22 18:27 "WORST MED I EVER TOOK". nitrofurantoin Allergy Unknown CAN'T Verified 05/12/22 18:27 REMEMBER Penicillins Allergy Unknown HAPPENED Verified 05/12/22 18:27 MANY YEARS AGO. gluten AdvReac Intermediate Gastrointestinal Verified 05/12/22 18:27 Upset soy AdvReac Intermediate Gastrointestinal Verified 05/12/22 18:27 Upset Consultations 05/12/22 22:20 ED Decision to Admit Stat Ordered Studies 05/12/22 17:34 CT head/brain wo con Stat Hospital Course (1) Hyponatremia: 82 yo F with PMH chronic hyponatremia, osteoarthritis, seasonal allergies presenting with recent URI symptoms, admitted for acute hyponatremia. -Known history of chronic hyponatremia x1.5 years with Na 126-133 -Low serum osmolality 268, urine sodium elevated 104, urine osmolality 442 -AM cortisol, TSH wnl, no known renal disase -Given euvolemia with hyponatremia workup as above, most likely SIADH though etiology unclear- possibly related to poor solute intake -Na 126 on admission uptrending to 129. Currently without neurological complications -Conservative SIADH management in hospital and recommended continuing on discharge -Fluid restriction 1200 mLs -Encourage oral solute intake -Close f/u with PCP after discharge (2) URI (upper respiratory infection): Likely viral URI -COVID negative, procalcitonin normal -Continued symptomatic management - Tylenol PRN, nasal saline -Urine Legionella pending at time of discharge -Keflex discontinued on admission (3) Seasonal allergies: -May have contributed to symptoms as well -Continued symptom relief w/ scheduled Flonase, Ernestine Plan F/E/N - Heplock. Regular diet with fluid restriction Ppx - Low risk for DVT Code - Full Dispo - Medical/surgical Discharge Plan Discharge Items Patient Disposition: Home - Self-Care Reason For Visit: HYPONATREMIA Discharge Diagnosis: Hyponatremia Activity: Resume your previous activity Non-emergency contact: Primary Care Provider Call non-emergency contact if: you have any medication questions Follow-up/Referrals: Mare Duque PA-C [Physician Dam Attendant] - PCP,NO [Primary Care Provider] - Diet: Regular Fluids: 1200ml (5 cups) Addtl Attending Provider Instructions: You were admitted to the hospital for hyponatremia, which is low sodium levels in the blood. There are multiple causes of hyponatremia and yours was likely caused by a condition known as SIADH- syndrome of antidiuretic hormone secretion . This is a disorder in which the body produces too much water-retaining hormone and thus keeps water in the body. The water essentially dilutes the salt in the body and reduces the total level of salt in the blood. SIADH often has an underlying cause such as thyroid disease but we are not certain as to the cause of your SIADH. It's possible your dietary intake of salts has not been sufficient. Going forward, you should restrict your fluid intake to no more than 1200 mLs per day. Fluid restriction is typically the main treatment for SIADH. A reasonable amount of salt with your meals will also help but the most important part is to ensure you do not drink too much fluid. A discharge summary will be sent to your primary care physician to ensure continuity of care. Please bring this discharge summary with you to your next office appointment so that your provider can review it at that time. Follow-up appointments: We have requested a follow-up appointment with your primary care physician Mare Duque. Please call their office if you do not hear from them. Medications: Your medication list has been reviewed and reconciled upon discharge to ensure accuracy and continuity of care. An updated list of all your medications is included with your hospital discharge paperwork. Please review this list closely, and make note of any changes. Take your medications as instructed; do not skip a dose of your medicines. Make sure all of your doctors know every medicine you are taking (including quzo-wtb-qjdzjkz medicines, vitamins, and supplements). Call your primary care provider before taking any new medicines (including kjle-mem-genjtwz medicines, vitamins, and supplements), because some of these may interact with your current medications, or may make your symptoms worse. Tell your primary care provider if you cannot afford your medications. CONTACT YOUR PRIMARY CARE PROVIDER if you experience any of the following: Lightheadedness Headache Lethargy Weakness Nausea/vomiting Abdominal pain Difficulty following your treatment plan, or difficulty taking medications CALL 911 OR GO TO THE EMERGENCY DEPARTMENT if you experience any of the following: Sudden, severe abdominal pain or nausea/vomiting Severe chest pain, or chest pain that radiates (moves) to your jaw or arm Sudden, severe shortness of breath or difficulty breathing Thank you for allowing us to participate in your care. Pending Studies at Discharge: No Stand-Alone Forms: My [facility] Medications and DC Order Prescriptions: Continued ascorbic acid (vitamin C) [Vitamin C] 1,000 mg Tablet 1 g PO QAM fexofenadine [Ernestine Allergy] 180 mg Tablet 180 mg PO QAM Deseret's wort 300 mg Capsule 900 mg PO DAILY cholecalciferol (vitamin D3) [Vitamin D3] 2,000 unit Capsule 2,000 unit PO QAM cyanocobalamin (vitamin B-12) [Vitamin B-12] 5,000 mcg Tablet, Sublingual 5,000 mcg SUBLINGUAL QAM Probiotic 3 billion cell Capsule 3,000 mmu cells PO QAM Artificial Tears (cmc) 1 % drops 2 drp OPHTHALMIC (EYE) BID fluticasone propionate 50 mcg/actuation spray,suspension 1 spray INTRANASAL BID Discontinued cephalexin 500 mg capsule 500 mg PO TID Qty: 21 0RF Rx Instructions: STARTED 05/11/22 FOR 7 DAYS. Admission Data Admit Date/Time: 05/12/22 22:53 Attending Provider: Bryan Caruso Admit Provider: Lauren Bose Primary Care Provider: PCP,NO Other Providers: Lauren Bose ; Salvador Clifton
[2022-05-13] MEDS ORDERED: LOPERAMIDE HCL 2 MG CAP PO PRN (20:36)
[2022-05-14] MEDS: FLUTICASONE PROPIONATE NA SPR 16 GM BTL SCH (07:31)
[2022-05-14] MEDS: FEXOFENADINE HCL 180 MG TAB PO SCH (07:31)
--- NOTE | 2022-05-14 08:47 | Hospitalist Progress Note ---
Date of Service May 14, 2022 Assessment & Plan (1) Hyponatremia: Plan: 82 yo F with PMH chronic hyponatremia, osteoarthritis, seasonal allergies presenting with recent URI symptoms, admitted for acute hyponatremia. -Known history of chronic hyponatremia x1.5 years with Na 126-133 -Low serum osmolality 268, urine sodium elevated 104, urine osmolality 442 -AM cortisol, TSH wnl, no known renal disase -Given euvolemia with hyponatremia workup as above, most likely SIADH though etiology unclear- possibly related to poor solute intake -Na 126 on admission uptrending to 129. Currently without neurological complications -Conservative SIADH management in hospital and recommended continuing on discharge -Fluid restriction 1200 mLs -Encourage oral solute intake -Close f/u with PCP after discharge (2) URI (upper respiratory infection): Plan: Likely viral URI -COVID negative, procalcitonin normal -Continued symptomatic management - Tylenol PRN, nasal saline -Urine Legionella pending at time of discharge -Keflex discontinued on admission (3) Seasonal allergies: Plan: -May have contributed to symptoms as well -Continued symptom relief w/ scheduled Flonase, Ernestine Plan F/E/N - Heplock. Regular diet with fluid restriction Ppx - Low risk for DVT Code - Full Dispo - Medical/surgical Admission and Anticipated Discharge Date Admission Date: May 12, 2022 Results & Data Results & Data ([facility]) Vital Signs (Past 12 Hours) Vital Signs Temp Pulse Resp BP Pulse Ox O2 Del Method 05/14/22 06:59 36.9 C 66 16 110/68 95 Room Air 05/13/22 22:13 37.5 C 79 16 109/67 96 Room Air
[2022-05-14 09:46] LABS: BUN Creatinine Ratio 11.8 (10-20); Calcium 8.2 mg/dl (8.5-10.1); Creatinine Clr Calc Pharmacy 58.5 ml/min; Est GFR (African American) 93.8 ml/min; Est GFR (Non-African American) 80.9 ml/min
--- NOTE | 2022-05-14 14:29 | Discharge Summary ---
Date of Service May 14, 2022 Admission HPI Per Admitting Provider Yue Hooks is an 82yo female presenting with complaint of 7 days of cough, congestion, sore throat, post nasal drip, and fatigue. She also experiences lightheadedness. Patient's daughter is at bedside and reports patient has been more confused and forgetful lately. She has had intermittent fevers with a fever prior to arrival to [facility]. She has had several episodes of diarrhea which started today as well. She was seen by her PCP on 05/09/22 with these complaints and was started on Keflex 500mg po TID for sinus infection. She also had blood work performed which revealed hyponatremia with Sk=697. She has had hyponatremia in the past but is uncertain why. Patient had a Covid-19 test on 05/08/22 which was NEGATIVE. She had a negative home Covid test today and her NAAT test performed in the ER today is NEGATIVE as well. She has received one Covid-19 vaccine and had Covid in September. No sick contacts and no recent travel. Patient denies chest pain, palpitations or abdominal pain. She has some nausea and poor appetite. Otherwise no complaints. In the ER she is afebrile, HD stable, no respiratory distress. Adequate oxygenation on room air. Admission Exam Per Admitting Provider General: patient resting comfortably, appears fatigued, NAD, non-toxic in appearance, AA&O x 4 Skin: warm, dry, intact, no rashes or lesions HEENT: NC/AT, PERRL, EOMI, anicteric sclera, conjunctiva without injection, external ear normal to inspection and nontender, nares patent, moist mucus membranes, dentition intact, no oropharyngeal lesions, neck supple, trachea midline, no LAD, no thyromegaly, no JVD Heart: +S1/S2, regular, no m/r/g Lungs: equal air entry bilaterally, no rales/rhonchi/wheezes Abd: +BS, soft, NT/ND, no masses/organomegaly/ascites Ext: warm, 2+ pulses in UE/LE bilaterally, no clubbing/cyanosis or edema Neuro: nonfocal, patient AA&O x 4, speech intact, no facial droop, moving all extremities on command with equal strength 5/5 Principal Diagnosis Hyponatremia Discharge Exam Constitutional WD/WN, vitals as above Eyes PERRL, conjunctivae normal, anicteric sclerae ENMT external ear and nose normal, oropharynx normal Neck trachea midline, no thyromegaly Respiratory normal respiratory effort, lungs clear to auscultation Cardiovascular RRR, no murmur, no edema Chest (Breasts) Chest: normal inspection of chest Gastrointestinal (Abdomen) normal bowel sounds, soft, nontender, no hepatosplenomegaly Skin no rashes, warm and dry Discharge Data Allergies Allergy/AdvReac Type Severity Reaction Status Date / Time Sulfa (Sulfonamide Allergy Intermediate RASH Verified 05/12/22 18:27 Antibiotics) metronidazole Allergy Unknown PER PT Verified 05/12/22 18:27 "WORST MED I EVER TOOK". nitrofurantoin Allergy Unknown CAN'T Verified 05/12/22 18:27 REMEMBER Penicillins Allergy Unknown HAPPENED Verified 05/12/22 18:27 MANY YEARS AGO. gluten AdvReac Intermediate Gastrointestinal Verified 05/12/22 18:27 Upset soy AdvReac Intermediate Gastrointestinal Verified 05/12/22 18:27 Upset lactose AdvReac Verified 05/14/22 11:45 milk AdvReac Verified 05/14/22 11:45 Consultations 05/12/22 22:20 ED Decision to Admit Stat Ordered Studies 05/12/22 17:34 CT head/brain wo con Stat Hospital Course (1) Hyponatremia: 82 yo F with PMH chronic hyponatremia, osteoarthritis, seasonal allergies presenting with recent URI symptoms, admitted for acute hyponatremia. -Recheck BMP in outpatient (1) Hyponatremia: Known history of chronic hyponatremia x1.5 years with Na 126-133. Low serum osmolality 268, urine sodium elevated 104, urine osmolality 442. AM cortisol, TSH wnl, no known renal disase. Given euvolemia with hyponatremia workup as above, most likely SIADH though etiology unclear at this time- possibly related to poor solute intake. Na 126 on admission uptrended to 131. Currently without neurological complications. Continue conservative SIADH management: Fluid restriction 1200 mLs, Encourage oral solute intake (2) URI (upper respiratory infection): Likely viral URI. COVID negative, procalcitonin normal. Continue symptomatic management - Tylenol PRN, nasal saline. Patient given Keflex in ED, dc'd (3) Seasonal allergies: May be contributing to symptoms as well. Continue symptom relief w/ scheduled Flonase, Ernestine (2) URI (upper respiratory infection): (3) Seasonal allergies: Total Time Total Time Spent Total Time Spent (In Minutes): see attending attestation Discharge Plan Discharge Items Patient Disposition: Home - Self-Care Reason For Visit: HYPONATREMIA Discharge Diagnosis: Hyponatremia Activity: Resume your previous activity Non-emergency contact: Primary Care Provider Call non-emergency contact if: you have any medication questions Follow-up/Referrals: Lili Decker CRNP [Nurse Practitioner] - 05/22/22 4:00 pm Diet: Regular Fluids: 1200ml (5 cups) Addtl Attending Provider Instructions: You were admitted to the hospital for hyponatremia, which is low sodium levels in the blood. There are multiple causes of hyponatremia and yours was likely caused by a condition known as SIADH- syndrome of antidiuretic hormone secretion. This is a disorder in which the body produces too much water- retaining hormone and thus keeps water in the body. The water essentially dilutes the salt in the body and reduces the total level of salt in the blood. SIADH often has an underlying cause such as thyroid disease but we are not certain as to the cause of your SIADH. It's possible your dietary intake of salts has not been sufficient. Going forward, you should restrict your fluid intake to no more than 1200 mLs per day. Fluid restriction is typically the main treatment for SIADH. A reasonable amount of salt with your meals will also help but the most important part is to ensure you do not drink too much fluid. A discharge summary will be sent to your primary care physician to ensure continuity of care. Please bring this discharge summary with you to your next office appointment so that your provider can review it at that time. Follow-up appointments: We have requested a follow-up appointment with your primary care physician Mare Duque. Please call their office if you do not hear from them. Medications: Your medication list has been reviewed and reconciled upon discharge to ensure accuracy and continuity of care. An updated list of all your medications is included with your hospital discharge paperwork. Please review this list closely, and make note of any changes. Take your medications as instructed; do not skip a dose of your medicines. Make sure all of your doctors know every medicine you are taking (including czcv-xcs-nhqcgid medicines, vitamins, and supplements). Call your primary care provider before taking any new medicine s (including iohw-klq-atznxgk medicines, vitamins, and supplements), because some of these may interact with your current medications, or may make your symptoms worse. Tell your primary care provider if you cannot afford your medications. CONTACT YOUR PRIMARY CARE PROVIDER if you experience any of the following: Lightheadedness Headache Lethargy Weakness Nausea/vomiting Abdominal pain Difficulty following your treatment plan, or difficulty taking medications CALL 911 OR GO TO THE EMERGENCY DEPARTMENT if you experience any of the following: Sudden, severe abdominal pain or nausea/vomiting Severe chest pain, or chest pain that radiates (moves) to your jaw or arm Sudden, severe shortness of breath or difficulty breathing Thank you for allowing us to participate in your care. Pending Studies at Discharge: No Stand-Alone Forms: My [facility] Medications and DC Order Prescriptions: Continued ascorbic acid (vitamin C) [Vitamin C] 1,000 mg Tablet 1 g PO QAM fexofenadine [Ernestine Allergy] 180 mg Tablet 180 mg PO QAM [place]'s wort 300 mg Capsule 900 mg PO DAILY cholecalciferol (vitamin D3) [Vitamin D3] 2,000 unit Capsule 2,000 unit PO QAM cyanocobalamin (vitamin B-12) [Vitamin B-12] 5,000 mcg Tablet, Sublingual 5,000 mcg SUBLINGUAL QAM Probiotic 3 billion cell Capsule 3,000 mmu cells PO QAM Artificial Tears (cmc) 1 % drops 2 drp OPHTHALMIC (EYE) BID fluticasone propionate 50 mcg/actuation spray,suspension 1 spray INTRANASAL BID Discontinued cephalexin 500 mg capsule 500 mg PO TID Qty: 21 0RF Rx Instructions: STARTED 05/11/22 FOR 7 DAYS. Discharge Orders: Discharge Order (Routine); Ordered 05/14/22 Ordered By: Dana Mercedes/Other Patient Handouts: Hyponatremia Dc Admission Data Admit Date/Time: 05/12/22 22:53 Attending Provider: Bryan Caruso Admit Provider: Lauren Bose Primary Care Provider: PCP,NO Other Providers: Lauren Bose ; Salvador Clifton Other Interventions: Discharge Summary Assessment (RN) Last Done: 05/14/22 14:41 Supervising Physician Co-Signing Physician Notes I personally examined the patient and verified all ovalle points of history and exam, discussed case, and agree with decision making with Dr Vernon Feeling okay. Wants to go home. Asks a lot of questions about her chronic upper respiratory congestion, but is not really able to give much of an HPInoting that her symptoms been going on "forever" but then whenever asked to clarify it sounds like maybe a few months, and at the same time whenever she replies that she has been on Flonase "forever" she relates may be several years. Discussed keeping a log of symptoms to better quantify and then build to move forward from there. Otherwise discussed SIADH and fluid restriction as well as close lab follow-up. Vitals noted, in general she is awake and alert pleasant no distress. HEENT normocephalic atraumatic mucous membranes moist. Breathing unlabored no a ccessory muscle use good effort. Skin shows no rashes no pallor or icterus. Neuro without focal deficits. Hyponatremiasafe/stable for home, labs appear most consistent with SIADH. Outpatient evaluation for underlying etiology. Fluid restrict at this time (discussed cutting back by about 10% on what she already currently drinks). Would recommend close outpatient labsprobably weekly for a few weeks, and then periodically thereafter. Nasal congestiongiven the difficulty she had and really being able to give much of a HPI/duration/etc., asked her to keep a symptom log to better be able to determine next steps for management. Stable for home. Otherwise as above. Resident Activity Tracking Resident Involvement: Resident Care Provided Care Provided: Adult [facility]
--- NOTE | 2022-05-14 17:52 | Billing Data ---
Date of Service May 14, 2022 Coding Level of Care Code D/C DAY MANAGEMENT <30 MINS
== END 2022-05-14 15:05 | disposition home or self-care (01) | DRG 645 ==
LOC: ED 16:49 → SUATTDRO 22:53 → 3W 22:53

== ENCOUNTER 2024-07-14 21:25 | Inpatient (IN) ==
--- NOTE | 2024-07-14 23:18 | Emergency Department Note ---
Impression & Plan Abdominal pain, Lumbar compression fracture, Urinary retention ED Provider Note NAME: ALEJANDRA REDDY AGE: 84 SEX: F : 1940 ARRIVES VIA: Walk-In INFORMANT: Patient ED PROVIDER(S): Bryan Grimes DO CHIEF COMPLAINT: Abdominal pain HPI: Patient is an 84-year-old female who presents to the ER for abdominal pain as well as back pain which has been present for over a week as she has a known compression fracture in the lumbar spine which has been evaluated previously in [place]. She notes that she has not had a bowel movement for the past week. Denies any headache or change in vision. No chest pain or shortness of breath. No nausea, vomiting, or diarrhea. No dysuria, urgency, or frequency. No other exacerbating or remitting factors. She denies any weakness or numbness in the arms or legs. Additional history obtained from family who is present at bedside who notes that she has a compression fracture which was discovered in [place] following a fall over a week ago. ADDITIONAL HISTORY OBTAINED: Per HPI Chronic Medical/Social Conditions Affecting Care: Per HPI PAST MEDICAL HISTORY:See Below PAST SURGICAL HISTORY:See Below FAMILY HISTORY:See Below SOCIAL HISTORY:See Below HOME MEDICATIONS:See Below ALLERGIES:See Below VITALS:See Below PHYSICAL EXAMINATION: GENERAL: Sitting up in bed, alert, well appearing, well nourished, no distress, non-toxic EYE EXAM: normal conjunctiva. PERRL and EOM's grossly intact. OROPHARYNX: no exudate, no erythema, lips, buccal mucosa, and tongue normal and mucous membranes are moist NECK: supple, no nuchal rigidity, no adenopathy, non-tender LUNGS: Clear to auscultation. Normal chest wall mechanics HEART: no murmurs, S1 normal and S2 normal ABDOMEN: abdomen soft, non-tender, normo-active bowel sounds, no masses, no rebound or guarding. UPPER EXTREMITIES: upper extremities are grossly normal. LOWER EXTREMITIES: Flexion-extension bilateral hips knees and ankles intact. NEURO EXAM: Normal sensorium, cranial nerves II-XII grossly intact, normal speech, no gross weakness of arms, no gross weakness of legs. No drift. Finger to nose intact. Gross sensation intact. MEDICAL DECISION MAKING: Patient is an 84-year-old female who presents to the ER with above-stated complaint. IV was established blood work is obtained. Labs show no significant leukocytosis or anemia. BMP with hyponatremia 126. LFTs bilirubin was unremarkable. Lipase was normal. UA was clean. CT abdomen pelvis suggested significantly distended bladder and hydronephrosis. Chung was placed and over a liter was obtained. Patient did have improvement. With the hyponatremia I discussed case with the hospitalist. She was given IV Tylenol as she did not want anything else. Patient was admitted pending reads of the CT abdomen pelvis and lumbar spine due to delays from stat rad. This did eventually result in showed small and a retropulsion at L1 but no canal stenosis. Patient also has constipation. CT of the abdomen pelvis was otherwise unremarkable. I do not feel this consistent with cauda equina at this time. She has no focal weakness in the legs. No numbness in the groin. Consults/Care Managements Discussions: Per [facility] Triage Nursing notes reviewed. Limited review of prior medical records performed Vital Signs: reviewed and remarkable for HTN Differential diagnosis: Differential diagnoses includes but is not limited to gastritis, peptic ulcer disease, GERD, gallbladder disease, pancreatitis, small bowel obstruction, appendicitis, diverticulitis, hernia, urinary tract infection, torsion, perforation, trauma, infectious. ER treatment provided: See below Diagnostics interpreted by me include EKG and cardiac monitoring as listed below: -Cardiac Monitoring: An order was placed for continuous cardiac monitoring. The monitor shows a rate of 70 with sinus rhythm. -ECG: none -Laboratory studies:Interpreted by me as stated above in MDM and shown below. Imaging studies: Xrays: As interpreted by me: KUB shows a moderate stool burden CTs show: CT of the lumbar spine and abdomen pelvis as described above Procedures:none Critical Care: None Past Med/Surg History Problem List (Updated 07/15/24 @ 02:56 by Kait Guevara DO) Urinary retention Nausea Constipation Lumbar compression fracture (07/13/24) . Age-indeterminate mild L1 compression deformity without retropulsion HONEY positive 1:160 on 02/2024. B12 deficiency Osteoarthritis Chronic hyponatremia Osteopenia Medical History Greater trochanteric pain syndrome Sensorineural hearing loss (SNHL) of both ears Acquired deviated nasal septum Diverticular disease Surgical History History of detached retina repair History of bilateral cataract extraction History of breast biopsy History of tonsillectomy History of appendectomy Status post trigger finger release History of esophagogastroduodenoscopy (EGD) History of colonoscopy History of bowel resection (~2014) Family History Father Esophageal cancer Hearing loss Cancer Grandfather (Maternal) Myocardial infarction Grandmother (Maternal) Lung cancer Other No family history of adverse response to anesthesia No family history of bleeding disorder Denies family history of Ovarian cancer Prostate cancer Diabetes Breast cancer Colorectal cancer Stroke Social History Smoking Status: Never smoker Second Hand Exposure: No; Do You Dip or Chew Tobacco: No; Hx Alcohol Use: Yes Alcohol type: wine Alcohol Intake Frequency: Monthly or Less Hx Substance Use: No Preferred Language: Slovak Communication Ability: Effective Visual Impairment: Limited 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 Beliefs That Will Affect Care: None marital status: / Current Living Situation: Family Current Living Situation Comment: Granddaughter lives with patient current occupational status: retired How many Children do You have: 1 Feels Safe at Home: Yes Childhood Exposure to Second-Hand Smoke: Yes Diet: lactose free Diet Comment: No soy or dairy caffeine: Yes during the past year weight has: remained stable Dental Care, Regularly: No Physical Activity Frequency: Daily Seatbelt Use: always Sunscreen Use: Yes Assistive Devices: Glasses and Hearing Aid - Bilateral Allergies Allergies Allergy/AdvReac Type Severity Reaction Status Date / Time Sulfa (Sulfonamide Allergy Intermediate RASH Verified 07/13/24 09:02 Antibiotics) metronidazole Allergy Unknown PER PT Verified 07/13/24 09:02 "WORST MED I EVER TOOK". nitrofurantoin Allergy Unknown CAN'T Verified 07/13/24 09:02 REMEMBER Penicillins Allergy Unknown HAPPENED Verified 07/13/24 09:02 MANY YEARS AGO. soy AdvReac Intermediate Gastrointestinal Verified 07/13/24 09:02 Upset lactose AdvReac Verified 07/13/24 09:02 milk AdvReac Verified 07/13/24 09:02 Home Meds Home Medications Medication Instructions Recorded Confirmed fexofenadine 180 mg tablet 180 mg PO QAM 08/11/19 07/13/24 (Ernestine Allergy) carboxymethylcellulose sodium 1 % 2 drp ophthalmic (eye) BID Dry 05/09/22 07/13/24 eye drops (Artificial Tears Eye(S) (carboxymethylcellulose)) Previous Rx's Medication Instructions Recorded fluticasone propionate 50 1 spray intranasal BID #16 grams 12/19/22 mcg/actuation nasal spray,suspension calcitonin (salmon) 200 1 spray intranasal (ALT) DAILY 07/13/24 unit/actuation nasal spray #3.7 mL diclofenac sodium 50 mg 50 mg PO BID #30 tabs 07/13/24 tablet,delayed release ondansetron HCl 4 mg tablet 4 mg PO Q6H #30 tabs 07/13/24 Results & Data (ED) Vital Signs Vital Signs - 24 hr 07/14/24 21:30 07/14/24 21:57 07/15/24 00:45 Temperature 36.5 C Temperature Source Temporal Artery Scan Pulse Rate 63 66 Pulse Rate [Right Finger] 64 Pulse Rhythm Regular Pulse Rhythm [Right Finger] Pulse Strength [Right Finger] Respiratory Rate 16 19 16 Respiratory Effort / Characteristics Respiratory Depth Blood Pressure 152/83 H Blood Pressure [Right Arm] 157/82 H Blood Pressure Mean 106 Blood Pressure Mean [Right Arm] 107 Pulse Oximetry 96 95 93 Oxygen Delivery Method Room Air Room Air Room Air Sepsis Recent Fever Within 48 Hours No Sepsis New/Unexplained Change in Mental Status No Sepsis Action Taken by Nursing No Action Required 07/15/24 00:47 Temperature Temperature Source Pulse Rate Pulse Rate [Right Finger] 66 Pulse Rhythm Pulse Rhythm [Right Finger] Regular Pulse Strength [Right Finger] Normal Respiratory Rate 16 Respiratory Effort / Characteristics Non-Labored Spontaneous Respiratory Depth Normal Blood Pressure Blood Pressure [Right Arm] 157/89 H Blood Pressure Mean Blood Pressure Mean [Right Arm] 111 Pulse Oximetry 92 Oxygen Delivery Method Room Air Sepsis Recent Fever Within 48 Hours Sepsis New/Unexplained Change in Mental Status Sepsis Action Taken by Nursing Laboratory Data 07/14/24 23:25 07/14/24 23:25 Lab Results 07/14/24 07/14/24 07/15/24 Range/Units 23:25 23:30 00:23 WBC 9.26 (4.8-10.8) K/ul RBC 4.27 (4.20-5.40) M/uL Hgb 12.9 (12.0-16.0) g/dl POC Hgb 13.6 (12.0-16.0) g/dl Hct 36.5 L (37.0-47.0) % POC Hct 40 (37-47) % MCV 85.5 (80.0-100.0) fL MCH 30.2 (25.0-34.0) pg MCHC 35.3 (32.0-36.0) g/dL RDW Std Deviation 39.8 (36.4-46.3) fL RDW Coeff of Billy 12.8 (11.5-14.5) % Plt Count 237 (130-400) K/uL MPV 10.0 (9.4-12.4) fL Immature Gran % (Auto) 0.3 % Neut % (Auto) 76.6 % Lymph % (Auto) 14.0 % [place] % (Auto) 7.9 % Eos % (Auto) 0.9 % Baso % (Auto) 0.3 % Neut # (Auto) 7.09 H (1.40-6.50) K/uL Lymph # (Auto) 1.30 (1.20-3.40) K/uL [place] # (Auto) 0.73 H (0.11-0.59) K/uL Eos # (Auto) 0.08 (0.00-0.50) K/uL Baso # (Auto) 0.03 (0.00-0.20) K/uL Immature Gran # (Auto) 0.03 (0.01-0.20) K/uL POC Sodium 126 L (135-144) mmol/L Sodium 126 L (136-145) mmol/L POC Potassium 4.9 (3.3-5.0) mmol/L Potassium 4.6 (3.5-5.1) mmol/L POC Chloride 94 L (101-112) mmol/L Chloride 92 L (98-107) mmol/L Carbon Dioxide 25 (21-32) mmol/L POC Total CO2 27 (24-31) mmol/L Anion Gap 9 (3-11) POC Anion Gap 11.0 L (16-25) mmol/L POC BUN 20 H (7-18) mg/dl BUN 18 (6-23) mg/dl Creatinine 0.73 (0.6-1.2) mg/dl POC Creatinine 0.8 (0.6-1.3) mg/dl Est Cr Clr Drug Dosing Not Reportable Est GFR ( Amer) 87.0 ml/min Est GFR (Non-Af Amer) 75.1 ml/min BUN/Creatinine Ratio 24.7 H (10-20) Glucose 91 (70-99(Fasting)) mg/dl POC Glucose (other) 94 (70-99) mg/dl Osmolality 266 L (280-300) mOsm/kg Calcium 9.6 (8.6-10.3) mg/dl POC Ioniz Calcium [place] 1.07 L (1.12-1.32) mmol/l Total Bilirubin 0.4 (0.2-1.0) mg/dl AST 23 (13-39) U/L ALT 12 (7-52) U/L Alkaline Phosphatase 71 (34-104) U/L Total Protein 6.9 (6.0-8.3) gm/dl Albumin 4.2 (3.4-5.0) gm/dl Globulin 2.7 (2.5-4.0) gm/dl Albumin/Globulin Ratio 1.6 (0.9-2) Lipase 47 (11-82) U/L Urine Color Yellow Urine Appearance Clear (Clear) Urine pH 8.0 H (4.5-7.5) Ur Specific [place] 1.015 (1.000-1.030) Urine Protein Negative (Negative) Urine Glucose (UA) Negative (Negative) Urine Ketones Negative (Negative) Urine Blood Negative (Negative) Urine Nitrite Negative (Negative) Urine Bilirubin Negative (Negative) Urine Urobilinogen Negative (Negative) Ur Leukocyte Esterase Negative (Negative) Urine Osmolality 266 L (500-800) mOsm/kg Ur Random Sodium 74 mmol/L Administered Medications Discontinued Medications Sodium Chloride (Nss) 1,000 mls @ 999 mls/hr IV .Q1H1M ONE Stop: 07/15/24 00:15 Last Infusion: 07/15/24 01:02 Dose: Infused Documented By: [facility] Admin: 07/14/24 23:58 Dose: 999 mls/hr Documented By: [facility] Acetaminophen (Ofirmev) 1,000 mg in 100 mls @ 400 mls/hr IV NOW STA Stop: 07/15/24 00:52 Last Infusion: 07/15/24 01:01 Dose: Infused Documented By: [facility] Admin: 07/15/24 00:42 Dose: 400 mls/hr Documented By: DELANEY Ioversol (Optiray 320 100ml) 100 ml IV ONCE ONE Stop: 07/15/24 00:01 Last Admin: 07/15/24 00:01 Dose: 93 ml Documented By: LOUIS Imaging Data Radiologist's Impression: Abdomen/Pelvis CT 07/14/24 23:15 Exam(s): CT ABDOMEN + PELVIS With Contrast IV Amt: 93 ML OPTIRAY 320 EXAM: CT Abdomen and Pelvis With Intravenous Contrast CLINICAL HISTORY: Reason for exam: abd pain. TECHNIQUE: Axial computed tomography images of the abdomen and pelvis with intravenous contrast. CTDI is 17 mGy and DLP is 785 mGy-cm. Automated exposure control was utilized for the study. A dose lowering technique was utilized adhering to the principles of ALARA. CONTRAST: Patient received 93 ML OPTIRAY 320 of IV contrast COMPARISON: 12/30/21 FINDINGS: Lung bases: Mild dependent bibasilar subsegmental atelectasis or scarring noted. Heart is normal in size. Mediastinum: Small hiatal hernia present. ABDOMEN: Liver: Unremarkable. No mass. Gallbladder and bile ducts: Unremarkable. No calcified stones. No ductal dilation. Pancreas: Unremarkable. No mass. No ductal dilation. Spleen: Unremarkable. No splenomegaly. Adrenals: Unremarkable. No mass. Kidneys and ureters: Unremarkable. No solid mass. No hydronephrosis. Stomach and bowel: Moderate amount of organized stool throughout the large bowel demonstrated. Scattered diverticula in the colon. No diverticulitis. Rectosigmoid anastomotic sutures noted. PELVIS: Appendix: No findings to suggest acute appendicitis. Bladder: Unremarkable. Physiologic distention of the urinary bladder. Reproductive: Unremarkable as visualized. ABDOMEN and PELVIS: Intraperitoneal space: Trace, nonspecific perihepatic ascites. No free air. Bones/joints: Acute appearing, mild severity compression fracture deformity of the L1 superior endplate demonstrated. No dislocation. No suspicious lytic or sclerotic osseous lesion. Soft tissues: Unremarkable. Vasculature: Unremarkable. No abdominal aortic aneurysm. Lymph nodes: Unremarkable. No enlarged lymph nodes. IMPRESSION: 1. Trace, nonspecific perihepatic ascites. 2. Moderate amount of organized stool throughout the large bowel demonstrated. 3. Acute appearing, mild severity compression fracture deformity of the L1 superior endplate demonstrated. Please refer to separate report for findings from CT lumbar spine performed concordantly. Electronically signed by: Perez Patricia MD 07/15/24 01:[address] 07/15/24 00:26 CR Exam(s): CT L SPINE With Contrast IV Amt: 93 ML OPTIRAY 320 EXAM: CT Lumbar Spine With Intravenous Contrast CLINICAL HISTORY: Reason for exam: back fx. TECHNIQUE: Axial computed tomography images of the lumbar spine with intravenous contrast. CTDI is 17.33 mGy and DLP is 785.02 mGy-cm. Automated exposure control was utilized for the study. A dose lowering technique was utilized adhering to the principles of ALARA. CONTRAST: Patient received 93 ML OPTIRAY 320 of IV contrast COMPARISON: No relevant prior studies available. FINDINGS: Vertebrae: Mild severity compression fracture deformity of the superior endplate of L1 demonstrated, and this appears acute. No other lumbar spine fracture or focal subluxation. Mild lumbar spine levoscoliosis. Discs/spinal canal/neural foramina: Moderate L1-2 disc space narrowing. Soft tissues: Unremarkable. IMPRESSION: Mild severity compression fracture deformity of the superior endplate of L1 demonstrated, and this appears acute. There is mild, 4.2 mm of retropulsion of the posterior cortex. No significant central canal stenosis. Consider further correlation with MRI or bone scan to confirm fracture acuity. Communications: Verify Receipt Electronically signed by: Perez Patricia MD 07/15/24 01:04 AM Discharge Plan Visit Data Chief Complaint: Back Injury/Pain Stated Complaint: back pain/constipation ED Provider: Bryan Grimes Discharge Problem: Abdominal pain, Lumbar compression fracture, Urinary retention Forms Stand Alone Forms: [facility] Prescriptions Prescriptions: No Action fluticasone propionate 50 mcg/actuation spray,suspension 1 spray INTRANASAL BID Qty: 16 1RF calcitonin (salmon) 200 unit/actuation spray,non-aerosol 1 spray intranasal (ALT) DAILY Qty: 3.7 2RF diclofenac sodium 50 mg tablet,delayed release (DR/EC) 50 mg PO BID Qty: 30 0RF ondansetron HCl 4 mg tablet 4 mg PO Q6H Qty: 30 1RF fexofenadine [Ernestine Allergy] 180 mg Tablet 180 mg PO QAM Artificial Tears (cmc) 1 % drops 2 drp OPHTHALMIC (EYE) BID Referrals Referrals: Obi Phoenix DO [Primary Care Provider] - Discharge Problem: Abdominal pain Qualifiers: Abdominal location: unspecified location Qualified Code(s): R10.9 - Unspecified abdominal pain Lumbar compression fracture Qualifiers: Encounter type: subsequent encounter
[2024-07-14 23:43] LABS: iSTAT Creatinine 0.8 mg/dl (0.6-1.3); iSTAT Hemoglobin 13.6 g/dl (12.0-16.0); iSTAT Ionized Calcium 1.07 mmol/l (1.12-1.32); iSTAT Potassium 4.9 mmol/L (3.3-5.0)
[2024-07-14 23:48] LABS: Basophils # (auto) 0.03 K/uL (0.00-0.20); Basophils % (auto) 0.3 %; Eosinophils # (auto) 0.08 K/uL (0.00-0.50); Eosinophils % (auto) 0.9 %; Hematocrit (blood only) 36.5 % (37.0-47.0); Hemoglobin 12.9 g/dl (12.0-16.0); Immature Granulocytes # (auto) 0.03 K/uL (0.01-0.20); Immature Granulocytes % (auto) 0.3 %; Mean Corpuscular Hemoglobin 30.2 pg (25.0-34.0); Mean Corpuscular Hgb Conc 35.3 g/dL (32.0-36.0); Mean Corpuscular Volume 85.5 fL (80.0-100.0); Monocytes # (auto) 0.73 K/uL (0.11-0.59); Monocytes % (auto) 7.9 %; Neutrophils # (auto) 7.09 K/uL (1.40-6.50); Neutrophils % (auto) 76.6 %; Platelet Count 237 K/uL (130-400); RDW Coefficient of Variation 12.8 % (11.5-14.5); RDW Standard Deviation 39.8 fL (36.4-46.3); Red Blood Count 4.27 M/uL (4.20-5.40); White Blood Count 9.26 K/ul (4.8-10.8)
[2024-07-14] MEDS: SODIUM CHLORIDE 0.9% 1,000 ML IV ONE (23:58)
[2024-07-15] MEDS: OPTIRAY 320 100ml IV ONE (00:01)
[2024-07-15 00:02] LABS: Albumin Level 4.2 gm/dl (3.4-5.0); Anion Gap 9 (3-11); Bilirubin,Total 0.4 mg/dl (0.2-1.0); Calcium 9.6 mg/dl (8.6-10.3); Carbon Dioxide 25 mmol/L (21-32); Chloride 92 mmol/L (98-107); Potassium 4.6 mmol/L (3.5-5.1); Sodium 126 mmol/L (136-145)
[2024-07-15 00:08] LABS: Alanine Aminotransferase 12 U/L (7-52); Albumin Globulin Ratio 1.6 (0.9-2); Alkaline Phosphatase 71 U/L (34-104); Aspartate Aminotransferase 23 U/L (13-39); BUN Creatinine Ratio 24.7 (10-20); Blood Urea Nitrogen 18 mg/dl (6-23); Est GFR (Non-African American) 75.1 ml/min; Globulin 2.7 gm/dl (2.5-4.0); Glucose 91 mg/dl (70-99(Fasting)); Lipase 47 U/L (11-82); Total Protein 6.9 gm/dl (6.0-8.3)
[2024-07-15 00:34] LABS: Appearance Urine Clear (Clear); Bilirubin Urine Negative (Negative); Blood Urine Negative (Negative); Color Urine Yellow; Glucose Urine UA Negative (Negative); Ketones Urine Negative (Negative); Leukocyte Esterase Urine Negative (Negative); Nitrite Urine Negative (Negative); Protein Urine Negative (Negative); Specific Gravity Urine 1.015 (1.000-1.030); Urobilinogen Urine Negative (Negative)
[2024-07-15] MEDS: ACETAMINOPHEN 1,000 MG/100 ML VIAL IV STA (00:42)
--- NOTE | 2024-07-15 01:05 | CT Scan Report ---
Exam(s): CT L SPINE With Contrast IV Amt: 93 ML OPTIRAY 320 EXAM: CT Lumbar Spine With Intravenous Contrast CLINICAL HISTORY: Reason for exam: back fx. TECHNIQUE: Axial computed tomography images of the lumbar spine with intravenous contrast. CTDI is 17.33 mGy and DLP is 785.02 mGy-cm. Automated exposure control was utilized for the study. A dose lowering technique was utilized adhering to the principles of ALARA. CONTRAST: Patient received 93 ML OPTIRAY 320 of IV contrast COMPARISON: No relevant prior studies available. FINDINGS: Vertebrae: Mild severity compression fracture deformity of the superior endplate of L1 demonstrated, and this appears acute. No other lumbar spine fracture or focal subluxation. Mild lumbar spine levoscoliosis. Discs/spinal canal/neural foramina: Moderate L1-2 disc space narrowing. Soft tissues: Unremarkable. IMPRESSION: Mild severity compression fracture deformity of the superior endplate of L1 demonstrated, and this appears acute. There is mild, 4.2 mm of retropulsion of the posterior cortex. No significant central canal stenosis. Consider further correlation with MRI or bone scan to confirm fracture acuity. Communications: Verify Receipt Electronically signed by: Perez Patricia MD 07/15/24 01:04 AM
--- NOTE | 2024-07-15 01:11 | CT Scan Report ---
Exam(s): CT ABDOMEN + PELVIS With Contrast IV Amt: 93 ML OPTIRAY 320 EXAM: CT Abdomen and Pelvis With Intravenous Contrast CLINICAL HISTORY: Reason for exam: abd pain. TECHNIQUE: Axial computed tomography images of the abdomen and pelvis with intravenous contrast. CTDI is 17 mGy and DLP is 785 mGy-cm. Automated exposure control was utilized for the study. A dose lowering technique was utilized adhering to the principles of ALARA. CONTRAST: Patient received 93 ML OPTIRAY 320 of IV contrast COMPARISON: 12/30/21 FINDINGS: Lung bases: Mild dependent bibasilar subsegmental atelectasis or scarring noted. Heart is normal in size. Mediastinum: Small hiatal hernia present. ABDOMEN: Liver: Unremarkable. No mass. Gallbladder and bile ducts: Unremarkable. No calcified stones. No ductal dilation. Pancreas: Unremarkable. No mass. No ductal dilation. Spleen: Unremarkable. No splenomegaly. Adrenals: Unremarkable. No mass. Kidneys and ureters: Unremarkable. No solid mass. No hydronephrosis. Stomach and bowel: Moderate amount of organized stool throughout the large bowel demonstrated. Scattered diverticula in the colon. No diverticulitis. Rectosigmoid anastomotic sutures noted. PELVIS: Appendix: No findings to suggest acute appendicitis. Bladder: Unremarkable. Physiologic distention of the urinary bladder. Reproductive: Unremarkable as visualized. ABDOMEN and PELVIS: Intraperitoneal space: Trace, nonspecific perihepatic ascites. No free air. Bones/joints: Acute appearing, mild severity compression fracture deformity of the L1 superior endplate demonstrated. No dislocation. No suspicious lytic or sclerotic osseous lesion. Soft tissues: Unremarkable. Vasculature: Unremarkable. No abdominal aortic aneurysm. Lymph nodes: Unremarkable. No enlarged lymph nodes. IMPRESSION: 1. Trace, nonspecific perihepatic ascites. 2. Moderate amount of organized stool throughout the large bowel demonstrated. 3. Acute appearing, mild severity compression fracture deformity of the L1 superior endplate demonstrated. Please refer to separate report for findings from CT lumbar spine performed concordantly. Electronically signed by: Perez Patricia MD 07/15/24 01:10 AM
--- NOTE | 2024-07-15 01:25 | History & Physical Report ---
Date of Service July 15, 2024 Assessment & Plan (1) Lumbar compression fracture: Plan: - Again noted on CT Lumbar spine - noted mild, 4.2 mm of retropulsion of the posterior cortex - pain control with Tylenol prn as that is what she requested - was started on calcitonin-> hold for now with mild hypocalcemia-> ionized calcium= 1.07 - consult ortho spine (2) Urinary retention: Plan: - Chung catheter in place and draining -> significant improvement in pelvic/abdominal pain with bladder decompression - question as to whether retention started before or after injury, but given minimal retropulsion, lack of central canal stenosis, and location at L1-> less likely related to injury - could be medication side effect with Ernestine, which she was been taking daily- > hold on admission (3) Constipation: Plan: - week since last BM - moderate stool burden noted on CT - plan to start with Miralax BID -> can up-titrate as needed (4) Hyponatremia: Plan: - Na= 126, with baseline in low 130s -> currently asymptomatic - Serum Osm= 266, Urine Na= 74-> likely Hypovolemic Hyponatremia - S/p 1L NSS in ED; continue gentle hydration with NSS @80ml/hr for an additional liter - Repeat BMP qAM Plan Diet: NPO pending ortho spine Code: Full VTE Prophylaxis: SCD, defer chemical pending ortho spine eval Dispo: Med Surg History of Present Illness Primary Care Provider: Obi Phoenix, 84 year old female with a past medical history of chronic hyponatremia with a sodium in the low 130s, seasonal allergies presenting with increased low back/pelvic pain. Daughter is at bedside and helps provide history. She was in [place], one week ago missed a step going down the stairs and fell backwards. Was diagnosed with L1 compression fracture. Over the past few days has had increased pain in her low back and lower abdomen. Has not had a bowel movement in a week- has tried Miralax and suppository. Has noticed some increased urinary frequency, feeling as through she is not emptying completely and abdominal distension- she believes that this predated the compression fracture and her daughter agrees that she was complaining of these symptoms prior. Denies LE weakness, bowel/bladder incontinence, saddle anesthesia. ED Course Significant for: NA= 126, Urinary retention-> catheter placed, CT Lumbar spine with compression fracture L1, mild, 4.2 mm of retropulsion of the posterior cortex, CT A&P with moderate stool burden Allergies Allergy/AdvReac Type Severity Reaction Status Date / Time Sulfa (Sulfonamide Allergy Intermediate RASH Verified 07/13/24 09:02 Antibiotics) metronidazole Allergy Unknown PER PT Verified 07/13/24 09:02 "WORST MED I EVER TOOK". nitrofurantoin Allergy Unknown CAN'T Verified 07/13/24 09:02 REMEMBER Penicillins Allergy Unknown HAPPENED Verified 07/13/24 09:02 MANY YEARS AGO. soy AdvReac Intermediate Gastrointestinal Verified 07/13/24 09:02 Upset lactose AdvReac Verified 07/13/24 09:02 milk AdvReac Verified 07/13/24 09:02 Home Medications Medication Instructions Recorded Confirmed Type fexofenadine 180 mg tablet 180 mg PO QAM 08/11/19 07/13/24 History (Ernestine Allergy) carboxymethylcellulose sodium 1 % 2 drp ophthalmic (eye) BID Dry 05/09/22 07/13/24 History eye drops (Artificial Tears Eye(S) (carboxymethylcellulose)) fluticasone propionate 50 1 spray intranasal BID #16 grams 12/19/22 07/13/24 Rx mcg/actuation nasal spray,suspension calcitonin (salmon) 200 1 spray intranasal (ALT) DAILY 07/13/24 07/13/24 Rx unit/actuation nasal spray #3.7 mL diclofenac sodium 50 mg 50 mg PO BID #30 tabs 07/13/24 07/13/24 Rx tablet,delayed release ondansetron HCl 4 mg tablet 4 mg PO Q6H #30 tabs 07/13/24 07/13/24 Rx Past Med/Surg History Problem List (Updated 07/15/24 @ 02:56 by Kait Guevara DO) Urinary retention Nausea Constipation Lumbar compression fracture (07/13/24) . Age-indeterminate mild L1 compression deformity without retropulsion HONEY positive 1:160 on 02/2024. B12 deficiency Osteoarthritis Chronic hyponatremia Osteopenia Medical History Greater trochanteric pain syndrome Sensorineural hearing loss (SNHL) of both ears Acquired deviated nasal septum Diverticular disease Surgical History History of detached retina repair History of bilateral cataract extraction History of breast biopsy History of tonsillectomy History of appendectomy Status post trigger finger release History of esophagogastroduodenoscopy (EGD) History of colonoscopy History of bowel resection (~2014) Family History Father Esophageal cancer Hearing loss Cancer Grandfather (Maternal) Myocardial infarction Grandmother (Maternal) Lung cancer Other No family history of adverse response to anesthesia No family history of bleeding disorder Denies family history of Ovarian cancer Prostate cancer Diabetes Breast cancer Colorectal cancer Stroke Social History Smoking Status: Never smoker Second Hand Exposure: No; Do You Dip or Chew Tobacco: No; Hx Alcohol Use: Yes Alcohol type: wine Alcohol Intake Frequency: Monthly or Less Hx Substance Use: No Preferred Language: Mexican Communication Ability: Effective Visual Impairment: Limited Hearing Ability: Use of Hearing Aid Central Supply Clerk Required: No Beliefs That Will Affect Care: None marital status: / Current Living Situation: Family Current Living Situation Comment: Granddaughter lives with patient current occupational status: retired How many Children do You have: 1 Feels Safe at Home: Yes Childhood Exposure to Second-Hand Smoke: Yes Diet: lactose free Diet Comment: No soy or dairy caffeine: Yes during the past year weight has: remained stable Dental Care, Regularly: No Physical Activity Frequency: Daily Seatbelt Use: always Sunscreen Use: Yes Assistive Devices: Glasses and Hearing Aid - Bilateral Review of Systems Review of Systems: As per above Physical Exam Physical Exam: Constitutional: well-appearing, no acute distress HEENT: NCAT, no conjunctival injection CV: regular rhythm, no murmur appreciated, extremities well-perfused, no LE edema Resp: CTABL, no wheezes/rales/rhonchi appreciated, no increased work of breathing GI: soft, nondistended, mild diffuse tenderness MSK: no gross deformities appreciated Skin: warm, dry, no rash appreciated Neuro: alert, oriented, no focal neurologic deficit appreciated, sensations intact, strength 5/5 LE B/L Results & Data Results & Data Vital Signs (Past 12 Hours) Vital Signs Temp Pulse Pulse Resp BP BP Pulse Ox 07/15/24 00:47 66 16 157/89 H 92 07/15/24 00:45 66 16 93 07/14/24 21:57 64 19 157/82 H 95 07/14/24 21:30 36.5 C 63 16 152/83 H 96 O2 Del Method 07/15/24 00:47 Room Air 07/15/24 00:45 Room Air 07/14/24 21:57 Room Air 07/14/24 21:30 Room Air Supervising Physician Co-Signing Physician Notes Patient seen and examined, chart reviewed, I agree with the assessment and plan per Dr. Guevara as above Lumbar compression fracture with mild retropulsion - ongoing back pain. Urinary retention s/p Chung Hyponatremia - acute on chronic On exam patient is resting comfortably, seen in room 312-1 Skin - hematoma noted on left hand, soft, 2+ pulses, NV intact HEENT - MMM, neck supple Heart - +S1/S2, regular Lungs - CPAP in place, no rales/rhonchi/wheezes Abd - +BS, soft, NT/ND Chung in place Labs and images reviewed Assessment/Plan Pain control with Tylenol PRN- Ortho-Spine consultation appreciated Maintain Chung catheter Gentle IVF, monitor Na Remainder as above Resident Activity Tracking Resident Involvement: Resident Care Provided Care Provided: Adult Hospital Medicine
[2024-07-15] MEDS ORDERED: Patient's HEIGHT &/or WEIGHT Needed STA (03:42)
[2024-07-15] MEDS: SODIUM CHLORIDE 0.9% 1,000 ML IV SCH (03:50)
--- NOTE | 2024-07-15 04:52 | Billing Data ---
Date of Service July 15, 2024 Coding Level of Care Code 09897 INT INP/OBS CARE
[2024-07-15] MEDS: ONDANSETRON INJ 2 MG/ML 2 ML VIAL IV PRN (05:49)
--- NOTE | 2024-07-15 06:56 | XRay Report ---
KUB CLINICAL HISTORY: Constipation. COMPARISON STUDY: CT of the abdomen and pelvis December 30, 2021. KUB July 13, 2024. FINDINGS: A superior L1 endplate compression fracture is again noted. The bowel gas pattern is normal . There is a moderate to large amount of stool within the colon. Minimal stool within the rectum. No urinary calculi are identified. IMPRESSION: 1. No evidence for a bowel obstruction. 2. Moderate to large amount of stool within the colon. 3. Redemonstration of the L1 superior endplate compression fracture. ACT 112: Negative or not required by law. Electronically signed by: Juan Luis De La Vega M.D. 07/15/2024 6:54 AM
[2024-07-15 07:13] LABS: Albumin Globulin Ratio 1.4 (0.9-2); Albumin Level 3.6 gm/dl (3.4-5.0); BUN Creatinine Ratio 23.4 (10-20); Bilirubin,Total 0.6 mg/dl (0.2-1.0); Calcium 8.6 mg/dl (8.6-10.3); Creatinine Clr Calc Pharmacy 58.4 ml/min; Est GFR (African American) 94.3 ml/min; Est GFR (Non-African American) 81.4 ml/min; Globulin 2.5 gm/dl (2.5-4.0); Potassium 4.5 mmol/L (3.5-5.1); Total Protein 6.1 gm/dl (6.0-8.3)
[2024-07-15] MEDS: POLYETHYLENE (MIRALAX) 17 GM PACK PO SCH (09:00)
--- NOTE | 2024-07-15 10:38 | Orthopedic Consultation ---
Date of Consultation July 15, 2024 Assessment & Plan (1) Lumbar compression fracture: Assessment L1 compression fracture. Plan at this time I did have discussion with this patient regarding her diagnosis and treatment plan. We discussed possible kyphoplasty. At this point she is steadily improving with rest and pain control. We both agreed continued observation is warranted. I ordered a TLSO brace which she can wear when she is up and ambulating. Will she will she tolerates physical therapy in the brace and hopefully avoid surgery. History of Present Illness Reason for Consultation: Back pain Attending Physician: Ranjith Meneses History of Present Illness This is a very pleasant 84-year-old female that has suffered a fall approximately a week ago and while in [place]. She has been struggling since. She is brought to the emergency room yesterday with worsening back pain and inability to function. This morning she states she has improved she has been able to get in and out of bed into the bathroom on her own. She denies any numbness or tingling to her legs. Allergies Allergy/AdvReac Type Severity Reaction Status Date / Time Sulfa (Sulfonamide Allergy Intermediate RASH Verified 07/13/24 09:02 Antibiotics) metronidazole Allergy Unknown PER PT Verified 07/13/24 09:02 "WORST MED I EVER TOOK". nitrofurantoin Allergy Unknown CAN'T Verified 07/13/24 09:02 REMEMBER Penicillins Allergy Unknown HAPPENED Verified 07/13/24 09:02 MANY YEARS AGO. soy AdvReac Intermediate Gastrointestinal Verified 07/13/24 09:02 Upset lactose AdvReac Verified 07/13/24 09:02 milk AdvReac Verified 07/13/24 09:02 Home Medications Medication Instructions Recorded Confirmed Type fexofenadine 180 mg tablet 180 mg PO QAM 08/11/19 07/13/24 History (Ernestine Allergy) carboxymethylcellulose sodium 1 % 2 drp ophthalmic (eye) BID Dry 05/09/22 07/13/24 History eye drops (Artificial Tears Eye(S) (carboxymethylcellulose)) fluticasone propionate 50 1 spray intranasal BID #16 grams 12/19/22 07/13/24 Rx mcg/actuation nasal spray,suspension calcitonin (salmon) 200 1 spray intranasal (ALT) DAILY 07/13/24 07/13/24 Rx unit/actuation nasal spray #3.7 mL diclofenac sodium 50 mg 50 mg PO BID #30 tabs 07/13/24 07/13/24 Rx tablet,delayed release ondansetron HCl 4 mg tablet 4 mg PO Q6H #30 tabs 07/13/24 07/13/24 Rx Patient History Medical History Greater trochanteric pain syndrome Sensorineural hearing loss (SNHL) of both ears Acquired deviated nasal septum Diverticular disease Surgical History History of detached retina repair History of bilateral cataract extraction History of breast biopsy History of tonsillectomy History of appendectomy Status post trigger finger release History of esophagogastroduodenoscopy (EGD) History of colonoscopy History of bowel resection (~2014) Family History Father Esophageal cancer Hearing loss Cancer Grandfather (Maternal) Myocardial infarction Grandmother (Maternal) Lung cancer Other No family history of adverse response to anesthesia No family history of bleeding disorder Denies family history of Ovarian cancer Prostate cancer Diabetes Breast cancer Colorectal cancer Stroke Social History Smoking Status: Never smoker Second Hand Exposure: No; Do You Dip or Chew Tobacco: No; Tobacco Cessation Education Requested by Patient: No Hx Alcohol Use: Yes (occassional glass with meals) Alcohol type: wine Alcohol Intake Frequency: Monthly or Less Hx Substance Use: No Preferred Language: Jamaican Communication Ability: Effective Visual Impairment: Limited Hearing Ability: Use of Hearing Aid 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 Beliefs That Will Affect Care: None marital status: / Current Living Situation: Other Current Living Situation Comment: lives with her dtr doug and grandson current occupational status: retired How many Children do You have: 1 Other Information That Helps Us Care for You: No Feels Safe at Home: Yes Safety Concerns: Feels Safe At This Time Childhood Exposure to Second-Hand Smoke: Yes Diet: lactose free Diet Comment: No soy or dairy caffeine: Yes during the past year weight has: remained stable Dental Care, Regularly: No Physical Activity Frequency: Daily Seatbelt Use: always Sunscreen Use: Yes Assistive Devices: None Physical Exam Physical Exam: Patient does appear comfortable. She is neurologically intact. Results & Data Vital Signs (Past 12 Hours) Vital Signs Temp Pulse Pulse Resp BP Pulse Ox O2 Del Method 07/15/24 07:06 36.4 C L 64 18 116/72 94 Room Air 07/15/24 04:43 36.9 C 64 16 136/83 92 Room Air 07/15/24 00:47 66 16 157/89 H 92 Room Air 07/15/24 00:45 66 16 93 Room Air
--- NOTE | 2024-07-15 10:51 | XRay Report ---
KUB HISTORY: Acute generalized abdominal pain with constipation constipation, abdominal pain COMPARISON: CT CT abdomen and pelvis and lumbar spine exams 07/14/2024 FINDINGS: Nonobstructive bowel gas pattern. Moderate colonic fecal retention redemonstrated. Vascular calcifications of the pelvis. No renal calculi. No ureteral calculi. No pneumoperitoneum or pneumat osis. Lumbar levoscoliosis with L1 superior endplate compression deformity redemonstrated. Surgical s uture material projects over the mid pelvis. No fracture. IMPRESSION: 1. Nonobstructive bowel gas pattern. 2. Moderate colonic fecal retention. 3. L1 compression deformity better seen on yesterday's CT examinations. ACT 112: Negative or not required by law. The above report was generated using voice recognition software. It may contain grammatical, syntax o r spelling errors. Electronically signed by: Dandy Ang M.D. 07/15/2024 10:49 AM
--- NOTE | 2024-07-15 12:27 | Communication Note ---
Date of Service: July 15, 2024 1) Lumbar compression fracture: - Again noted on CT Lumbar spine - noted mild, 4.2 mm of retropulsion of the posterior cortex - pain control with Tylenol prn as that is what she requested - was started on calcitonin-> hold for now with mild hypocalcemia-> ionized calcium= 1.07 - consult ortho spine - recommendations with supportive care for now, brace ordered for patient (2) Urinary retention: - Chung catheter in place and draining -> significant improvement in pelvic/abdominal pain with bladder decompression - question as to whether retention started before or after injury, but given minimal retropulsion, lack of central canal stenosis, and location at L1-> less likely related to injury - could be medication side effect with Ernestine, which she was been taking daily- > hold on admission (3) Constipation: - week since last BM - moderate stool burden noted on CT -repeat KUB 07/15 revealed moderate stool burden - plan to start with Miralax BID -> can up-titrate as needed (4) Hyponatremia: - Na= 126, with baseline in low 130s -> currently asymptomatic - Serum Osm= 266, Urine Na= 74-> likely Hypovolemic Hyponatremia - S/p 1L NSS in ED; continue gentle hydration with NSS @80ml/hr for an additional liter -[facility] 07/15 reviewed: sodium 129 Diet: lactose intolerant Code: Full VTE Prophylaxis: SCD, defer chemical pending ortho spine eval Dispo: Med Surg
[2024-07-15] MEDS: POLYETHYLENE (MIRALAX) 17 GM PACK PO ONE (13:09)
[2024-07-15] MEDS: ACETAMINOPHEN 1,000 MG/100 ML VIAL IV PRN (13:53)
[2024-07-16 06:46] LABS: Albumin Globulin Ratio 1.3 (0.9-2); Albumin Level 3.2 gm/dl (3.4-5.0); BUN Creatinine Ratio 16.1 (10-20); Bilirubin,Total 0.5 mg/dl (0.2-1.0); Calcium 8.4 mg/dl (8.6-10.3); Creatinine Clr Calc Pharmacy 60.3 ml/min; Est GFR (African American) 95.3 ml/min; Est GFR (Non-African American) 82.2 ml/min; Globulin 2.4 gm/dl (2.5-4.0); Total Protein 5.6 gm/dl (6.0-8.3)
[2024-07-16 07:16] VITALS: RESP 14
--- NOTE | 2024-07-16 09:44 | XRay Report ---
KUB HISTORY: Acute has abdominal pain with constipation constipation, re-eval stool burden COMPARISON: Radiograph 07/15/2024, CT lumbar spine 07/14/2024. FINDINGS: Nonobstructive bowel gas pattern. Moderate colonic fecal retention redemonstrated. Vascular calcifications of the pelvis. No renal calculi. No ureteral calculi. No pneumoperitoneum or pneumato sis. Lumbar levoscoliosis with L1 superior endplate compression deformity redemonstrated. Surgical hopkins ture material projects over the mid pelvis. No fracture. IMPRESSION: 1. Nonobstructive bowel gas pattern. 2. Moderate colonic fecal retention is similar to prior. 3. L1 compression deformity better seen on the 07/14/2024 CT lumbar spine. ACT 112: Negative or not required by law. The above report was generated using voice recognition software. It may contain grammatical, syntax o r spelling errors. Electronically signed by: Dandy Ang M.D. 07/16/2024 9:43 AM
[2024-07-16] MEDS: bisacodyL 10 MG SUPP PR STA (11:30)
--- NOTE | 2024-07-16 14:00 | Discharge Summary ---
Discharge Summary Date of Service July 16, 2024 Principal Dx & Hospital Course #1 = Principal Diagnosis (1) Lumbar compression fracture: Patient presented to the ED on 07/15 with complaints of back pain, urinary retention, and constipation. Lumbar spine revealed mild severity compression fracture deformity of the superior endplate of L1 demonstrated and appears acute. mild, 4.2mm of retropulsion of the posterior cortex. no significant central canal stenosis, consider further eval w/ MRI or bone scan to confirm fx acuity. Pain controlled w/ tylneol. Ortho spine was consulted who recommended supportive care w/ brace and to follow up in outpatient office for further imaging. (2) Urinary retention: Patient initially had estevez catheter placed. Void trial completed on 07/16 with 3ml residual on bladder scan. Retention likely due to Ernestine use. Recommended to not use this any further. Less likely related to lumbar fracture given minimal retropulsion, lack of central canal stenosis, and location at L1 (3) Constipation: Patient had no BM x 1 week. Started on Miralax BID. KUB on 07/16 showed moderate stool burden but patients symptoms had improved. No longer tender to palpation. Recommended she take Miralax BID x 7 days then daily thereafter. (4) Hyponatremia: - Na= 126, with baseline in low 130s -> currently asymptomatic - Serum Osm= 266, Urine Na= 74-> likely Hypovolemic Hyponatremia -sodium day of discharge stable at 134 Admission HPI Per Admitting Provider 84 year old female with a past medical history of chronic hyponatremia with a sodium in the low 130s, seasonal allergies presenting with increased low back/pelvic pain. Daughter is at bedside and helps provide history. She was in [place], one week ago missed a step going down the stairs and fell backwards. Was diagnosed with L1 compression fracture. Over the past few days has had increased pain in her low back and lower abdomen. Has not had a bowel movement in a week- has tried Miralax and suppository. Has noticed some increased urinary frequency, feeling as through she is not emptying completely and abdominal distension- she believes that this predated the compression fracture and her daughter agrees that she was complaining of these symptoms prior. Denies LE weakness, bowel/bladder incontinence, saddle anesthesia. ED Course Significant for: NA= 126, Urinary retention-> catheter placed, CT Lumbar spine with compression fracture L1, mild, 4.2 mm of retropulsion of the posterior cortex, CT A&P with moderate stool burden Discharge Exam Constitutional WD/WN, vitals as above Eyes PERRL, conjunctivae normal, anicteric sclerae Respiratory normal respiratory effort, lungs clear to auscultation Cardiovascular RRR, no murmur, no edema Psychiatric A+Ox3, euthymic affect Discharge Plan Discharge Items Patient Disposition: Home - Home Health Services Reason For Visit: COMPRESSION FRACTURE Discharge Diagnosis: Compression fracture, Constipation, urinary retention Activity: Resume your previous activity Non-emergency contact: Primary Care Provider Call non-emergency contact if: you have any medication questions and your symptoms worsen Follow-up/Referrals: Obi Phoenix DO [Primary Care Provider] - 07/23/24 2:00 pm Diet: Lactose Intolerant Addtl Attending Provider Instructions: Ms. Hooks, You were recently hospitalized for lower back pain. You were seen by our human resources services specialist for your compression fracture in your back and were recommended supportive care with a brace. You also had developed constipation and urinary retention. Your catheter was removed and you are able to urinate on your own again. 1. Your X-ray still shows stool burden - please take Miralax twice daily for the next 7 days. -Following the 7 days, please continue to take Miralax daily to aid with constipation -Dosage is 1 capful - please mix in a non-carbonated beverage. 2. Please avoid Ernestine as this contributed to your urinary retention. 3. The remainder of your outpatient medications may be resumed. 4. Please wear your back brace when you are ambulating. 5. Please follow up with Dr. Cai outpatient for continued care of your compression fracture. Please follow up with your PCP within 1-2 weeks of discharge. If you develop any worsening constipation, back pain, or experience inability to void please report to the ER for further care. Sincerely, Pastora Sweeney PA-C Pending Studies at Discharge: No Stand-Alone Forms: [facility], Smoking Cessation Medications and DC Order Prescriptions: Continued fluticasone propionate 50 mcg/actuation spray,suspension 1 spray INTRANASAL BID Qty: 16 1RF calcitonin (salmon) 200 unit/actuation spray,non-aerosol 1 spray intranasal (ALT) DAILY Qty: 3.7 2RF ondansetron HCl 4 mg tablet 4 mg PO Q6H Qty: 30 1RF Artificial Tears (cmc) 1 % drops 2 drp OPHTHALMIC (EYE) BID Discontinued fexofenadine [Ernestine Allergy] 180 mg Tablet 180 mg PO QAM Discharge Orders: Discharge Order (Routine); Ordered 07/16/24 Ordered By: Pastora Sweeney Admission Data Admit Date/Time: 07/15/24 01:14 Attending Provider: Ranjith Meneses Admit Provider: Kait Guevara Primary Care Provider: Obi Phoenix Other Providers: Rubens Cai; [facility] Other Interventions: Discharge Summary Assessment (RN) Last Done: 07/16/24 14:37 Hospital Stay Data Consultations 07/15/24 00:45 ED Decision to Admit Stat 07/15/24 03:28 Consult Orthopedic Spine Surgery Routine Diagnostic Imagining Performed 07/14/24 23:15 CT abd pelvis IV con only Stat 07/15/24 00:26 CT lumbar spine w con Stat Pending Results Patient Have Any Pending Studies at Discharge: No Discharge Instructions Given to Patient (Per Discharging Provider) Ms. Hooks, You were recently hospitalized for lower back pain. You were seen by our human resources services specialist for your compression fracture in your back and were recommended supportive care with a brace. You also had developed constipation and urinary retention. Your catheter was removed and you are able to urinate on your own again. 1. Your X-ray still shows stool burden - please take Miralax twice daily for the next 7 days. -Following the 7 days, please continue to take Miralax daily to aid with constipation -Dosage is 1 capful - please mix in a non-carbonated beverage. 2. Please avoid Ernestine as this contributed to your urinary retention. 3. The remainder of your outpatient medications may be resumed. 4. Please wear your back brace when you are ambulating. 5. Please follow up with Dr. Cai outpatient for continued care of your compression fracture. Please follow up with your PCP within 1-2 weeks of discharge. If you develop any worsening constipation, back pain, or experience inability to void please report to the ER for further care. Sincerely, Pastora Sweeney PA-C Supervising Physician Co-Signing Physician Notes During face to face encounter, I obtained a brief physical examination, discussed hospital stay with patient and discharge instructions with patient. I discussed discharge plan of care with KEITH Sweeney. I reviewed above note and agree with it except for the following: Seem for lumbar compression fracture. supportive care with brace. Total Time Total Time Spent Total Time Spent (In Minutes): 35 Total Time Includes: Examination of the Patient, Discharge Planning and Medication Reconciliation Coding Level of Care Code 54866 INP/OBS DISCH >30 MIN Diagnoses Lumbar compression fracture S32.000A Urinary retention R33.9 Constipation K59.00 Hyponatremia E87.1
[2024-07-16 14:25] VITALS: BP 125/75; PULSE 62; TEMP 98.2; O2SAT 99
== END 2024-07-16 15:35 | disposition home health service (06) | DRG 552 ==
LOC: ED 21:25 → 3E 07-15 01:14 → SUATTDRO 07-15 01:14 → 3E 07-15 03:55